=== PATIENT | female | born 1965 | race African-American/Black ===

== ENCOUNTER 2017-10-25 06:29 | Day surgery (SDC) | payer BC ==
--- NOTE | 2017-10-20 18:45 | HP ---
CC: Dr. Kiera Thao; Dr. Jered Toledo; Dr. Baylee Castle, [facility] * ADMISSION HISTORY AND PHYSICAL: DATE OF ADMISSION: 10/25/17 ATTENDING SURGEON: Dr. Demetrio Santiago.* (DICTATED BY JUSTICE BENJAMIN) CHIEF COMPLAINT: Anal fissure. HISTORY OF PRESENT ILLNESS: This is a 52-year-old female with multiple medical problems (see below), who presents with approximately a 2- month history of anorectal pain. She has a past history of internal hemorrhoids and thought initially that that could be the reason for her pain. She describes pain in the anorectal area on a pretty much ongoing basis, though particularly worse at the time of bowel movements. She will occasionally have bright red blood present on the toilet paper, but not on a regular basis. Her bowel movements are at least once daily and she does not describe any history consistent with constipation. She was seen initially by Dr. Santiago on 08/26/17 , at which time, exam in the prone position revealed a hemorrhoidal tag at the 3 o'clock position as well as a sentinel tag at the 11 o'clock position. Digital exam revealed exquisite tenderness at the 11 o'clock position. She was prescribed nitroglycerin ointment and topical lidocaine, neither of which afforded much relief. She returned for further discussion and Dr. Santiago has outlined the options, the indications, risks, benefits, and alternatives. At this point, she would like to proceed as scheduled with Botox injection for anal fissure. 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 She has decreased visual acuity in the right eye. She has esophageal varices (status post EGD on 10/05/[address] Castle with findings of grade 3 esophageal varices and plan for banding of same on 11/02/17 with her warfarin to be held for 5 days ). PAST SURGICAL HISTORY: Previous surgeries include laparoscopic cholecystectomy , laparoscopic converted to open splenectomy, bilateral breast augmentation, prior right breast biopsy and left axillary biopsy both for benign lesions, abdominoplasty, vaginal hysterectomy (subtotal) for benign disease, transhepatic bile duct stenting with subsequent removal of stent, right eye surgery, and left eye surgery. CURRENT MEDICATIONS: 1. Hydrea 500 mg 2 tablets once daily. 2. Warfarin 6 mg on Tuesdays and Fridays and 5.5 mg all other days (I will check with Dr. Santiago whether warfarin can be continued preoperatively for this procedure). 3. Metoprolol 25 mg b.i.d. 4. Hydralazine 25 mg 3 tablets t.i.d. 5. Omeprazole 10 mg q. day. 6. Oxycodone 5 mg up to b.i.d. p.r.n. (uses infrequently). 7. Zolpidem 10 mg q.h.s. 8. Colace 100 mg 2 to 3 times daily. DRUG ALLERGIES: CIPRO (hives), INDERAL (the patient does not recall reaction). She also has nausea secondary to EGGS or EGG DERIVATIVES. FAMILY HISTORY: Father age 59 from PE. No other family history of thromboembolic disease. No family history of anesthesia problems or bleeding disorders. SOCIAL HISTORY: The patient is . Her niece also lives with her. 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 She denies use of tobacco. She drinks on average 1 to 2 drinks per month. She denies other recreational drug use. REVIEW OF SYSTEMS: General: No recent constitutional symptoms or acute illnesses other than described in the HPI and past medical history. Eyes: No recent changes or additions to above. Ears, Nose, Throat: No new problems reported. Teeth in good repair. Cardiovascular: She has a longstanding murmur. No chest pain. She is treated for hypertension. Respiratory: No history of asthma, chronic cough, or shortness of breath. GI: No particular upper GI symptoms. Esophageal varices as noted above. She has had colonic polyps removed in the past. Her last exam greater than 5 years ago (she knows that she is due for a recheck with no interval problems other than noted per the HPI). : No problems reported (breast exam, mammogram, pelvic exam, and Pap smear all done within the past year and reportedly normal). Hematological: As above with sickle cell disease, no additions. Endocrine: No diabetes or thyroid dysfunction. Remainder of review of systems is negative other than as noted. PHYSICAL EXAMINATION GENERAL: Well-nourished, obese, woman, in no acute distress. VITAL SIGNS: Height 64 inches, weight 218 pounds. Blood pressure 136/84, pulse 72, respirations 16. HEENT: Pupils are equal, round, and reactive. EOMs intact. No conjunctival pallor. Oropharynx: Teeth in good repair. No intraoral lesions. NECK: No lymphadenopathy in the cervical or supraclavicular regions. No thyromegaly or masses. LUNGS: Clear to auscultation. No rales or wheezes. HEART: Regular rate and rhythm. She has a soft holosystolic murmur heard throughout the precordium. BREASTS: Not examined. ABDOMEN: Soft with mild tenderness in the epigastrium and right upper quadrant , which she states is consistent with her usual. No palpable masses or organomegaly. GENITALIA: Not done. RECTAL: Not done. BACK: No spinous process or CVA tenderness. EXTREMITIES: No edema at the present time. NEUROLOGIC: Grossly intact. SKIN: Warm and dry. No suspicious rashes or lesions. IMPRESSION: Anal fissure. PLAN: Botox injection for anal fissure. JUSTICE BENJAMIN [id number]/CPS #: [id number] [facility]OSPITALAbad
[~2017-10-25 06:29] MED LIST: Buffered Lidocaine 0.9% SYRIN* 5 ML/SYR SYRINGE INTRADERM ONE; Famotidine TAB* 20 MG PO ONE
[2017-10-25] MEDS ORDERED: Famotidine TAB* 20 MG ONE (06:42)
[2017-10-25] MEDS ORDERED: Lidocaine 1% INJ* 10 MG/ML 30 ML SDV ONE (07:05)
[2017-10-25] MEDS ORDERED: Bupivacaine 0.25% SDV* 30 ML ONE (07:06)
[2017-10-25] MEDS ORDERED: Lidocaine 2% JELLY* 6 ML JELLY TOPICAL ONE (07:06)
[2017-10-25] MEDS ORDERED: Metoprolol Tartrate TAB* 25 MG ONE (07:16)
[2017-10-25] MEDS ORDERED: fentaNYL* 50 MCG/ML 2 ML VIAL (100 MCG VIAL) ONE (07:29)
[2017-10-25] MEDS ORDERED: Midazolam* 1 MG/ML 5 ML VIAL (5 MG) ONE (07:29)
[2017-10-25] MEDS ORDERED: Lidocaine 2% PF * 5 ML VIAL ONE ×2 (07:30→07:31)
[2017-10-25] MEDS ORDERED: Ondansetron INJ* 2 MG/ML VIAL ONE (07:31)
[2017-10-25] MEDS ORDERED: Dexamethasone IV* 4 MG/ML 1 ML (4 MG) ONE (07:31)
[2017-10-25] MEDS ORDERED: Propofol* 10 MG/ML 20 ML BTL IV PUSH ONE (07:31)
[2017-10-25] MEDS ORDERED: Ketorolac INJ* 30 MG/ML 1 ML VIAL ONE (07:31)
[2017-10-25] MEDS ORDERED: Lidocaine 1% MPF wEPI 200,000* 30 ML SDV ONE (07:53)
[2017-10-25] MEDS ORDERED: Onabotulinimtoxina 100 UNITS* VIAL ONE (08:00)
[2017-10-25] MEDS ORDERED: Metoprolol Tartrate TAB* 25 MG PO ONE (08:18)
[2017-10-25] MEDS ORDERED: Naloxone* 0.4 MG/ML 1 ML VIAL IV PRN (08:19)
[2017-10-25] MEDS ORDERED: Acetaminophen TAB* 325 MG PO PRN (08:19)
[2017-10-25] MEDS ORDERED: DiMENhydriNATE IV* 50 MG/ML VIAL IV PUSH PRN (08:19)
[2017-10-25 08:49] VITALS: BP 129/79
--- NOTE | 2017-10-26 12:41 | OP ---
CC: Kiera Thao MD * DATE OF SURGERY: 10/25/17 - SDS DATE OF : 67 SURGEON: Demetrio Santiago MD ANESTHESIA: MAC. ANESTHESIOLOGIST: Dr. Lackey. PRE-OP DIAGNOSIS: Anal fissure. POST-OP DIAGNOSIS: Anal fissure. OPERATIVE PROCEDURE: Botox injection for treatment of anal fissure. ESTIMATED BLOOD LOSS: Minimal. IV FLUIDS: Crystalloid. SPECIMEN: None. DRAINS: None. COMPLICATIONS: None. DESCRIPTION OF PROCEDURE: The patient was brought to the operating room and placed on the table in supine lithotomy. The patient was administered intravenous sedation and then the perineum was prepped and draped. The examination revealed presence of fissure posteriorly and the intersphincteric groove was identified by palpation and then 300 units of Botox was reconstituted in 2 cc of normal saline and 1 cc aliquots were injected in the internal sphincter muscle at areas lateral to the posterior fissure at approximately 4 o'clock and 8 o'clock with the patient supine. Lidocaine jelly was then instilled into the anal canal and the patient tolerated this well, was transferred to recovery in stable condition. [id number]/CPS #: [id number] MTDD
== END 2017-10-25 09:24 | disposition home or self-care (01) ==
LOC: OR 06:29
PROVIDERS: ATTEND Surgery
DX: K60.2 Anal fissure, unspecified (principal); Z79.01 Long term (current) use of anticoagulants; Z79.899 Other long term (current) drug therapy; Z88.1 Allergy status to other antibiotic agents
CPT/HCPCS: A9270-GY; J0585; J1100; J1885; J2001; J2250; J2405; J2704; J3010

== ENCOUNTER 2017-11-15 07:22 | Inpatient (IN) | payer BC ==
[2017-11-15] MEDS ORDERED: NS 0.9% 1000 ML* 1,000 ML IV ONE (07:48)
[2017-11-15 08:02] LABS: Urine Appearance Clear; Urine Blood Negative (Negative); Urine Color Yellow; Urine Ketones Negative (Negative); Urine Protein Negative (Negative); Urine Specific Gravity 1.009 (1.010-1.030); Urine Urobilinogen Negative (Negative)
[2017-11-15 08:12] LABS: Hematocrit 26 % (35-47); Hemoglobin 8.6 g/dl (12.0-16.0); Mean Corpuscular HGB Conc 33 g/dl (31-36); Mean Corpuscular Hemoglobin 30 pg (27-31); Mean Corpuscular Volume 92 fL (80-97); Mean Platelet Volume 9.8 um3 (7.4-10.4); Platelet Count 234 10^3/ul (150-450); Red Blood Count 2.83 10^6/ul (4.0-5.4); Red Cell Distribution Width 20 % (10.5-15); White Blood Count 7.1 10^3/ul (3.5-10.8)
[2017-11-15 08:15] LABS: INR 1.4 (0.77-1.02)
[2017-11-15 08:23] LABS: EGFR Non-African American 86.8 (>60)
[2017-11-15 08:56] LABS: Monocytes % 9 % (0-7)
[2017-11-15] MEDS ORDERED: Ondansetron INJ* 2 MG/ML VIAL IV ONE (09:16)
[2017-11-15] MEDS ORDERED: Morphine VIAL* 4 MG/ML VIAL (1 ml vial) IV ONE ×3 (09:16→14:25)
[2017-11-15] MEDS ORDERED: Iohexol 300* (CONTRAST) 10 ML SDV IV ONE (10:19)
--- NOTE | 2017-11-15 10:58 | RAD ---
INDICATION: Abdominal pain. Appendicitis . Recent banding of gastric varices COMPARISON: None TECHNIQUE: Axial source images were obtained from the hemidiaphragms to the symphysis pubis following administration of oral and intravenous contrast. 131 mL Omnipaque 300 was utilized. Coronal and sagittal reconstructed images were acquired. Lung bases: There is a small left-sided pleural effusion with atelectatic change in the left lung base. Liver: The liver is heterogeneous with geographic areas of decreased attenuation. The findings are likely related to focal sparing from fatty infiltration. There is intrahepatic gas which is believed to be biliary in origin Suggest follow-up.. Gallbladder: Cholecystectomy. Spleen: Splenectomy. Pancreas: No focal pancreatic mass or significant ductal dilatation. Adrenal glands: There is no evidence of adrenal mass. Kidneys: The kidneys are normal in size and position. There are prompt nephrograms and there is prompt excretion bilaterally. There are no renal parenchymal masses. There is no evidence of nephrolithiasis. Adenopathy: There is no evidence of adenopathy by size criteria. Fluid collections: There is diffuse mesenteric edema. Much of the edema is peripancreatic in origin. There is trace free fluid in the dependent portion of the pelvis Vessels:There are no significant atherosclerotic changes involving the aorta. There is no focal aneurysm. The iliac vessels are normal in caliber. The IVC appears normal. The portal vein is thrombosed. GI tract: There are no acute CT bowel findings. There is no obstruction. The stomach and small bowel appear normal. The lower GI tract is normal. The cecum, ileocecal valve, and terminal ileum appear normal. The appendix is not visualized. There is no mass or localized peripancreatic inflammatory change. Pelvic organs: Hysterectomy. No adnexal mass Bladder: There are no bladder masses. Abdominal and pelvic soft tissues: The extraperitoneal abdominal and pelvic soft tissues appear normal.. Osseous structures: There are no acute osseous findings. Other: None IMPRESSION: 1. Small left-sided pleural effusion and left basilar atelectasis. 2. Heterogeneous liver with geographic areas of decreased attenuation likely related to focal sparing from fatty infiltration. Suggest follow-up. 3. Intrahepatic gas which is believed to be secondary to pneumobilia. The patient status post cholecystectomy. Has patient undergone sphincterotomy? 4. Age-indeterminate portal venous thrombosis. 5. Splenectomy. 6. Nonvisualization of the appendix. 7. Hysterectomy. 8. Suggest correlation with prior imaging and complete medical history.
--- NOTE | 2017-11-15 12:03 | ED ---
Tamir Saldivar Tiffany, scribed for Neil Walden on 11/15/17 at 0756 . Abdominal Pain/Female - HPI Summary HPI Summary: 52 y/o F presents to [facility] complains of abdominal pain since four days ago. Describes the pain as pressure. Rates the pain 7/10 in severity. Symptoms aggravated by food. Symptoms alleviated by nothing. Reports decreased appetite. Denies vomiting, diarrhea, bloody stools, constipation, black stools. Has treated pain with oxycodone [employer] without relief. Hx Sickle cell. Surg hx gallbladder. Had endoscopy done with banding on . Pt called office, talked to Dr. Melendez, who said for her to come to the ED. - History of Current Complaint Chief Complaint: EDAbdPain Stated Complaint: ABD PAIN Time Seen by Provider: 11/15/17 07:31 Hx Obtained From: Patient Onset/Duration: Lasting Days - four days ago, Still Present Severity Currently: Moderate Pain Intensity: 7 Pain Scale Used: 0-10 Numeric Character: Other: - Pressure Aggravating Factor(s): Food Alleviating Factor(s): Nothing Associated Signs and Symptoms: Positive: Negative - vomiting, diarrhea, bloody stools, constipation, black stools, Decreased Appetite Allergies/Adverse Reactions: Allergies Allergy/AdvReac Type Severity Reaction Status Date / Time ciprofloxacin [From Cipro] Allergy Intermediate Hives Verified 11/15/17 07:28 egg Allergy hives and Verified 11/15/17 07:28 vomiting chicken derived AdvReac Intermediate Nausea Verified 11/15/17 07:28 Home Medications: Home Medications Warfarin TAB(*) [Coumadin TAB(*)] 6 mg PO TUFR 11/15/17 [History Confirmed 11/15] PMH/Surg Hx/FS Hx/Imm Hx Previously Healthy: No Endocrine/Hematology History: Reports: Hx Sickle Cell Disease - sickle SC disease, Hx Anemia Denies: Hx Diabetes Cardiovascular History: Reports: Hx Cardiomegaly, Hx Hypertension Denies: Hx Pacemaker/ICD Respiratory History: Reports: Hx Sleep Apnea GI History: Reports: Hx Gastroesophageal Reflux Disease, Hx Irritable Bowel - r/ t gallbladder removed, Other GI Disorders - Hx of stones in bile duct History: Denies: Hx Renal Disease Musculoskeletal History: Reports: Hx Arthritis - degenerative arthritis left knee Sensory History: Reports: Hx Contacts or Glasses - glasses Denies: Hx Hearing Aid Opthamlomology History: Reports: Hx Contacts or Glasses - glasses Psychiatric History: Denies: Hx Panic Disorder - Cancer History Hx Chemotherapy: No - Surgical History Surgery Procedure, Year, and Place: GALLBLADDER-RIGHT BREAST LUMPECTOMY. SPLENECTOMY. BREAST REDUCTION. TUMMY TUCK. EYE SURGERY FOR VISION. HYSTERECTOMY Hx Anesthesia Reactions: No Infectious Disease History: Yes Infectious Disease History: Reports: Hx Hepatitis - non specified hep Denies: Traveled Outside the [place] in Last 30 Days - Family History Known Family History: Positive: Hypertension - Mother, Other - Father from pulmonary embolism, mother has enlarged heart - Social History Alcohol Use: Occasionally Hx Substance Use: No Substance Use Type: Reports: None Hx Tobacco Use: No Smoking Status (MU): Never Smoked Tobacco Review of Systems Negative: Fever Gastrointestinal: Negative - bloody stools, constipation, black stools Positive: Abdominal Pain, Other - Decreased appetite. Negative: Vomiting, Diarrhea All Other Systems Reviewed And Are Negative: Yes Physical Exam - Summary Physical Exam Summary: Appearance: Well appearing, no pain distress Skin: warm, dry, reflects adequate perfusion Head/face: normal Eyes: EOMI, DANIEL ENT: normal Neck: supple, non-tender Respiratory: CTA, breath sounds present Cardiovascular: RRR, pulses symmetrical Abdomen: tenderness in the epigastric area, RUQ, RLQ Bowel: present Musculoskeletal: normal, strength/ROM intact Neuro: normal, sensory motor intact, A&Ox3 Triage Information Reviewed: Yes Vital Signs On Initial Exam: Initial Vitals Temp Pulse Resp BP Pulse Ox 98.4 F 88 16 147/89 99 11/15/17 07:24 11/15/17 07:24 11/15/17 07:24 11/15/17 07:24 11/15/17 07:24 Vital Signs Reviewed: Yes Diagnostics - Vital Signs Vital Signs Temp Pulse Resp BP Pulse Ox 11/15/17 07:24 98.4 F 88 16 147/89 99 - Laboratory Lab Results: Lab Results 11/15/17 11/15/17 11/15/17 Range/Units 07:54 07:58 07:58 WBC 7.1 (3.5-10.8) 10^3/ul RBC 2.83 L (4.0-5.4) 10^6/ul Hgb 8.6 L (12.0-16.0) g/dl Hct 26 L (35-47) % MCV 92 (80-97) fL MCH 30 (27-31) pg MCHC 33 (31-36) g/dl RDW 20 H (10.5-15) % Plt Count 234 (150-450) 10^3/ul MPV 9.8 (7.4-10.4) um3 Neut % (Auto) Not Reportable Lymph % (Auto) Not Reportable [place] % (Auto) Not Reportable Eos % (Auto) Not Reportable Baso % (Auto) Not Reportable Absolute Neuts (auto) Not Reportable Absolute Lymphs (auto) Not Reportable Absolute Monos (auto) Not Reportable Absolute Eos (auto) Not Reportable Absolute Basos (auto) Not Reportable Absolute Nucleated RBC Not Reportable Neutrophils % 84 H (38-83) % Lymphocytes % 7 L (25-47) % Monocytes % 9 H (0-7) % Eosinophils % 0 (0-6) % Basophils % 0 (0-2) % Nucleated RBC % Not Reportable Abs Neuts (Manual) 6.0 (1.5-7.7) 10^3/ul Abs Lymphs (Manual) 0.5 L (1.0-4.8) 10^3/ul Abs Monocytes (Manual) 0.6 (0-0.8) 10^3/ul Absolute Eos (Manual) 0 (0-0.6) 10^3/ul Abs Basophils (Manual) 0 (0-0.2) 10^3/ul Normal RBC Morphology Not Reportable Polychromasia 1+ Target Cells 3+ INR (Anticoag Therapy) (0.77-1.02) APTT (26.0-36.3) seconds Sodium 136 L (139-145) mmol/L Potassium 3.4 L (3.5-5.0) mmol/L Chloride 104 (101-111) mmol/L Carbon Dioxide 27 (22-32) mmol/L Anion Gap 5 (2-11) mmol/L BUN 6 (6-24) mg/dL Creatinine 0.71 (0.51-0.95) mg/dL Est GFR ( Amer) 111.6 (>60) Est GFR (Non-Af Amer) 86.8 (>60) BUN/Creatinine Ratio 8.5 (8-20) Glucose 103 H (70-100) mg/dL Lactic Acid (0.5-2.0) mmol/L Calcium 8.6 (8.6-10.3) mg/dL Total Bilirubin 0.90 (0.2-1.0) mg/dL AST 14 (13-39) U/L ALT 6 L (7-52) U/L Alkaline Phosphatase 105 H (34-104) U/L Troponin I 0.00 (<0.04) ng/mL Total Protein 7.5 (6.4-8.9) g/dL Albumin 3.2 (3.2-5.2) g/dL Globulin 4.3 H (2-4) g/dL Albumin/Globulin Ratio 0.7 L (1-3) Lipase 12 (11.0-82.0) U/L Beta HCG, Quant 1.28 mIU/mL Urine Color Yellow Urine Appearance Clear Urine pH 7.0 (5-9) Ur Specific [place] 1.009 L (1.010-1.030) Urine Protein Negative (Negative) Urine Ketones Negative (Negative) Urine Blood Negative (Negative) Urine Nitrate Negative (Negative) Urine Bilirubin Negative (Negative) Urine Urobilinogen Negative (Negative) Ur Leukocyte Esterase Negative (Negative) Urine Glucose Negative (Negative) 11/15/17 11/15/17 Range/Units 07:58 07:58 WBC (3.5-10.8) 10^3/ul RBC (4.0-5.4) 10^6/ul Hgb (12.0-16.0) g/dl Hct (35-47) % MCV (80-97) fL MCH (27-31) pg MCHC (31-36) g/dl RDW (10.5-15) % Plt Count (150-450) 10^3/ul MPV (7.4-10.4) um3 Neut % (Auto) Lymph % (Auto) [place] % (Auto) Eos % (Auto) Baso % (Auto) Absolute Neuts (auto) Absolute Lymphs (auto) Absolute Monos (auto) Absolute Eos (auto) Absolute Basos (auto) Absolute Nucleated RBC Neutrophils % (38-83) % Lymphocytes % (25-47) % Monocytes % (0-7) % Eosinophils % (0-6) % Basophils % (0-2) % Nucleated RBC % Abs Neuts (Manual) (1.5-7.7) 10^3/ul Abs Lymphs (Manual) (1.0-4.8) 10^3/ul Abs Monocytes (Manual) (0-0.8) 10^3/ul Absolute Eos (Manual) (0-0.6) 10^3/ul Abs Basophils (Manual) (0-0.2) 10^3/ul Normal RBC Morphology Polychromasia Target Cells INR (Anticoag Therapy) 1.40 H (0.77-1.02) APTT 34.5 (26.0-36.3) seconds Sodium (139-145) mmol/L Potassium (3.5-5.0) mmol/L Chloride (101-111) mmol/L Carbon Dioxide (22-32) mmol/L Anion Gap (2-11) mmol/L BUN (6-24) mg/dL Creatinine (0.51-0.95) mg/dL Est GFR ( Amer) (>60) Est GFR (Non-Af Amer) (>60) BUN/Creatinine Ratio (8-20) Glucose (70-100) mg/dL Lactic Acid 0.8 (0.5-2.0) mmol/L Calcium (8.6-10.3) mg/dL Total Bilirubin (0.2-1.0) mg/dL AST (13-39) U/L ALT (7-52) U/L Alkaline Phosphatase (34-104) U/L Troponin I (<0.04) ng/mL Total Protein (6.4-8.9) g/dL Albumin (3.2-5.2) g/dL Globulin (2-4) g/dL Albumin/Globulin Ratio (1-3) Lipase (11.0-82.0) U/L Beta HCG, Quant mIU/mL Urine Color Urine Appearance Urine pH (5-9) Ur Specific [place] (1.010-1.030) Urine Protein (Negative) Urine Ketones (Negative) Urine Blood (Negative) Urine Nitrate (Negative) Urine Bilirubin (Negative) Urine Urobilinogen (Negative) Ur Leukocyte Esterase (Negative) Urine Glucose (Negative) Result Diagrams: 11/15/17 07:58 11/15/17 07:58 Lab Statement: Any lab studies that have been ordered have been reviewed, and results considered in the medical decision making process. - CT Abd/Pel CT Interpretation Completed By: Radiologist - 1. Small left-sided pleural effusion and left basilar atelectasis. 2. Heterogeneous liver with geographic areas of decreased attenuation likely related to focal sparing from fatty infiltration. Suggest follow-up. 3. Intrahepatic gas which is believed to be secondary to pneumobilia. The patient status post cholecystectomy. Has patient undergone sphincterotomy? 4. Age-indeterminate portal venous thrombosis. 5. Splenectomy. 6. Nonvisualization of the appendix. 7. Hysterectomy. 8. Suggest correlation with prior imaging and complete medical history. ED physician has reviewed this report. - EKG 07:59 Cardiac Rate: NL - 83 BPM EKG Rhythm: Sinus Rhythm EKG Interpretation: No acute changes Abdominal Pain Fem Course/Dx - Course Course Of Treatment: 52 y/o F presents to [facility] complains of abdominal pain since four days ago. Bloodwork, UA, imaging obtained. Consulted patient care with Dr. Toledo, oncology, who agress to admit patient. - Diagnoses Differential Diagnosis: Positive: Appendicitis, Diverticulitis, Pancreatitis, Renal Colic, Urinary Tract Infection Provider Diagnoses: Abdominal pain, Sickle cell disease, Anemia, Portal vein thrombosis - Provider Notifications Discussed Care Of Patient With: Nawaf Melendez Time Discussed With Above Provider: 08:07 Instructed by Provider To: Other - Dr. Melendez (GI) agrees to come in and see patient. Dr. Toledo, oncology, agrees to admit patient at 11:52. Discharge - Sign-Out/Discharge Documenting (check all that apply): Discharge/Admit/Transfer - Discharge Plan Condition: Fair Disposition: ADMITTED TO [facility] Referrals: Kiera Thao MD [Primary Care Provider] - Additional Instructions: Follow up with your primary care provider in 3 days. Return to the Emergency Department for any new or worsening symptoms. - Billing Disposition and Condition Condition: FAIR Disposition: [facility] The documentation as recorded by the Tamir forbes Tiffany accurately reflects the service I personally performed and the decisions made by Iram javier Emmanuel.
[2017-11-15 13:52] LABS: Immature Retic Fraction 0.66; RBC Retic Count 2.84 10^6/ul (4.6-6.2)
[2017-11-15 14:58] LABS: Hematocrit for Retic CNT 26 % (35-47)
[2017-11-15] MEDS: NS 0.9% 1000 ML* 1,000 ML IV SCH ×2 (16:00→21:23)
[2017-11-15] MEDS ORDERED: Ondansetron ODT TAB* 4 MG PO PRN (17:34)
[2017-11-15] MEDS ORDERED: Ondansetron INJ* 2 MG/ML VIAL IV PRN (17:34)
[2017-11-15] MEDS ORDERED: KCL 20 MEQ/100 ML IVPREMIX* 20 MEQ/100 ML BAG IV ONE (17:36)
[2017-11-15] MEDS ORDERED: Warfarin TAB(*) 6 MG PO SCH (18:00)
[2017-11-15] MEDS: Morphine VIAL* 4 MG/ML VIAL (1 ml vial) IV PRN ×2 (18:09→21:37)
[2017-11-15] MEDS: hydrALAZINE TAB* 25 MG PO SCH (21:22)
[2017-11-15] MEDS: Metoprolol Tartrate TAB* 25 MG PO SCH (21:23)
[2017-11-15] MEDS: Zolpidem TAB* 10 MG PO PRN (21:36)
[2017-11-15] MEDS: HydroxyUREA CAP* 500 MG CAP PO SCH (21:36)
--- NOTE | 2017-11-16 00:35 | CONS ---
GASTROENTEROLOGY CONSULT: DATE: 11/15/17 CONSULTING PHYSICIANS: Neil Walden, ER Kiera Thao, [facility] Jered Toledo REASON FOR CONSULT: Upper abdominal pain increasing in a woman with portal hypertension secondary to portal venous clotting and recent variceal banding on 11/09/17. 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 She had an upper endoscopy October 05 investigating 4-5 months of abdominal pain that had not responded to trials of PPIs. At that time varices were seen, though she was on warfarin (sickle cell prophylaxis) and plan was made to hold that and at a later date come back for banding. No clear-cut cause for the abdominal pain that led to the September 2017 endoscopy was evident. She had very mild antral gastritis and mild duodenitis. She came in for the banding 11/09/17 with 4 bands applied to fairly impressive varices in the distal esophagus. She went home, has had a feeling of pressure in her lower chest. She vomited once. The next day, she was able to take in water and had some lemonade, but she was not eating solids She felt a little better on 11/11/17 and 11/12/17, but then felt worse again by 11/14/17 and she was only taking in crackers. She said there was pain and feverishness and there was 1 more episode of mild emesis yesterday. She had a feeling of chills. Her bowels have been reduced she says consistent with her reduced intake. She had a small formed movement last night that was brown. She did report having some tarry stools a couple of weeks ago before the banding. She called the answering service this morning stating she was not able to eat and was in severe pain and was recommended she come to the ER. PAST MEDICAL HISTORY: 1. 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 She has never had any transfusions or exchange transfusions. She has been on Hydrea started by a medical manager at the [facility] a few yrs ago 2. Portal hypertension - secondary to obliteration of the portal vein and branches. She had a liver biopsy in [place] in 2009 showing fatty change. Later her said she'd had at least 5 variceal bandings 3. Splenectomy - in 1999. 4. Cholecystectomy in 1997. 5. Hysterectomy - ovaries left in place in 2001. 6. Breast reduction surgery in 2004. 7. Breast lumpectomies - in the remote past. 8. Abdominoplasty. 9. Sleep apnea - using a CPAP for several years. 10. History of common bile duct stones - ERCP in 2002 with endoscopic sphincterotomy and removal of common bile duct stones. 11. Pancreatitis episodes - over 5 yrs ago MEDICATIONS AT HOME: 1. Hydrea 1 g b.i.d. 2. Metoprolol 25 b.i.d. 3. Hydralazine 75 t.i.d. 4. Warfarin 6 mg 2 days a week, 5.5 five days a week. 5. Omeprazole 20 mg on an empiric trial. 6. She has a supply of oxycodone at home for pain. 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 She is . ROS - no history of seizures, CVA, throid disease, falls, hepatitis, renal stones, neuropathy, skin disease PHYSICAL EXAM: She is a healthy-appearing black female, in overt distress at this time in the ER on a gurney. She had 4 mg of morphine about 2 hours ago. HEENT exam shows no icterus. She has no adenopathy. Her lungs are clear. Heart sounds are normal. Breast and Pelvic Exams: Deferred. The abdomen is mildly obese, soft and with some doughy resistance in the upper abdomen without localization. There is no involuntary guarding. Rectal: Deferred. Extremities show no edema. DIAGNOSTIC STUDIES/LAB DATA: CT review - some irregularity of the hepatic texture. Gallbladder is missing. Portal vein is not seen, though there are multiple small little collaterals with dye. Axial and sagittal views of the distal esophagus do not show impressive collaterals. There is no ascites. The pancreas has a somewhat ill defined margin. Labs - CBC: Hemoglobin 8.6, hematocrit 26, MCV 92, white count 7.1, platelets 234. INR 1.40. Sodium 136, potassium 3.4, creatinine 0.71, BUN 6. LFTs normal with alkaline phosphatase borderline at 105. LDH 233. Albumin 3.2. Urinalysis shows specific gravity 1.009 and all other parameters negative. From April 2017, she had a negative hepatitis B surface antigen and hepatitis B core antibody. IMPRESSION AND PLAN: This 52-year-old woman with portal hypertension based not on hepatic parenchymal disease, but portal venous occlusions, has upper abdominal pain increasing shortly following an upper endoscopy with banding. The endoscopy was designed to find cause for abdominal pain. It did not do so, though bands were applied to varices for the third time (addendum - her says 5th or 6th). At this time, there is nothing specific in her history, exam or imaging to point to a specific complication from the endoscopy. If nothing else is found and it seems most likely that the acute pain could be from the bands it may be that in some area one secured a portion of the muscular layer. There is no evidence for pancreatitis, CBD stone or small bowel obstruction or diverticulitis. It does not seem likely that she has a sickle crisis at the moment, though we will defer to Dr. Toledo's judgement. Admission, hydration and pain control seem warranted. She does not appear to be significantly dehydrated at the moment. [id number]/[facility] #: [id number] [facility] SHOREAbad
[2017-11-16] MEDS: Morphine VIAL* 4 MG/ML VIAL (1 ml vial) IV PRN ×6 (02:21→22:31)
[2017-11-16] MEDS: NS 0.9% 1000 ML* 1,000 ML IV SCH ×4 (03:06→21:04)
[2017-11-16 05:51] LABS: Hematocrit 23 % (35-47); Hemoglobin 7.7 g/dl (12.0-16.0); Mean Corpuscular HGB Conc 33 g/dl (31-36); Mean Corpuscular Hemoglobin 31 pg (27-31); Mean Corpuscular Volume 93 fL (80-97); Mean Platelet Volume 9.9 um3 (7.4-10.4); Platelet Count 244 10^3/ul (150-450); Red Blood Count 2.49 10^6/ul (4.0-5.4); Red Cell Distribution Width 20 % (10.5-15); White Blood Count 7.1 10^3/ul (3.5-10.8)
[2017-11-16 05:52] LABS: INR 1.68 (0.77-1.02)
[2017-11-16 06:03] LABS: EGFR Non-African American 99.6 (>60)
[2017-11-16 06:30] LABS: Monocytes % 13 % (0-7)
[2017-11-16] MEDS: Omeprazole CAP* 20 MG PO SCH (07:56)
[2017-11-16] MEDS: HydroxyUREA CAP* 500 MG CAP PO SCH ×2 (09:25→21:09)
[2017-11-16] MEDS: Metoprolol Tartrate TAB* 25 MG PO SCH ×2 (09:25→21:09)
[2017-11-16] MEDS: hydrALAZINE TAB* 25 MG PO SCH ×3 (09:25→21:09)
[2017-11-16] MEDS ORDERED: Warfarin TAB(*) 5 MG PO SCH (17:00)
[2017-11-16] MEDS ORDERED: Warfarin TAB(*) 6 MG PO ONE (17:00)
[2017-11-16] MEDS ORDERED: Warfarin TAB(*) 1 MG PO SCH (17:00)
[2017-11-16] MEDS: Zolpidem TAB* 10 MG PO PRN (22:31)
[2017-11-17] MEDS: Morphine VIAL* 4 MG/ML VIAL (1 ml vial) IV PRN ×5 (03:40→23:17)
[2017-11-17] MEDS: NS 0.9% 1000 ML* 1,000 ML IV SCH (03:40)
[2017-11-17 05:35] LABS: Hematocrit 23 % (35-47); Hemoglobin 7.8 g/dl (12.0-16.0); Mean Corpuscular HGB Conc 33 g/dl (31-36); Mean Corpuscular Hemoglobin 31 pg (27-31); Mean Corpuscular Volume 92 fL (80-97); Mean Platelet Volume 9.6 um3 (7.4-10.4); Platelet Count 277 10^3/ul (150-450); Red Blood Count 2.54 10^6/ul (4.0-5.4); Red Cell Distribution Width 20 % (10.5-15); White Blood Count 7.1 10^3/ul (3.5-10.8)
[2017-11-17 05:37] LABS: INR 2.31 (0.77-1.02)
[2017-11-17 05:48] LABS: EGFR Non-African American 116.5 (>60)
[2017-11-17 06:03] LABS: Monocytes % 6 % (0-7)
[2017-11-17] MEDS: Omeprazole CAP* 20 MG PO SCH (09:23)
[2017-11-17] MEDS: Metoprolol Tartrate TAB* 25 MG PO SCH ×2 (09:23→20:41)
[2017-11-17] MEDS: hydrALAZINE TAB* 25 MG PO SCH ×3 (09:23→20:39)
[2017-11-17] MEDS: HydroxyUREA CAP* 500 MG CAP PO SCH ×2 (09:23→20:42)
--- NOTE | 2017-11-17 09:52 | PN ---
Progress Note - Progress Note Date of Service: 11/17/17 SOAP: Subjective: still does not feel well. feels like if she goes home she will come right back. midepigastric pain radiating up her throat like bile and around the right side to her back. this is similar in a lot of ways to the pain that prompted her upper endoscopy in September to try to find cause of pain. has not vomited but feels like she wants to. definitely NOT similar to her sickle pain crises. Objective: Vital Signs Temp Pulse Resp BP Pulse Ox 98.7 F 92 16 137/77 100 11/17/17 07:16 11/17/17 07:16 11/17/17 07:16 11/17/17 07:16 11/17/17 07:16 sitting up in nad perr eomi op moist CTA bl s1 s2 II/ LANA soft, mild ttp throughout, +bs no le edema A+O x 3, nonfocal neurological exam Laboratory Results - last 24 hr 11/17/17 11/17/17 11/17/17 05:07 05:07 05:07 WBC 7.1 RBC 2.54 L Hgb 7.8 L Hct 23 L MCV 92 MCH 31 MCHC 33 RDW 20 H Plt Count 277 MPV 9.6 Neut % (Auto) Not Reportable Lymph % (Auto) Not Reportable [place] % (Auto) Not Reportable Eos % (Auto) Not Reportable Baso % (Auto) Not Reportable Absolute Neuts (auto) Not Reportable Absolute Lymphs (auto) Not Reportable Absolute Monos (auto) Not Reportable Absolute Eos (auto) Not Reportable Absolute Basos (auto) Not Reportable Absolute Nucleated RBC Not Reportable Neutrophils % 81 Lymphocytes % 13 L Monocytes % 6 Eosinophils % 0 Basophils % 0 Nucleated RBC % Not Reportable Abs Neuts (Manual) 5.8 Abs Lymphs (Manual) 0.9 L Abs Monocytes (Manual) 0.4 Absolute Eos (Manual) 0 Abs Basophils (Manual) 0 Nucleated RBCs/100 WBC 4 H Normal RBC Morphology Not Reportable Anisocytosis 2+ Target Cells 3+ INR (Anticoag Therapy) 2.31 H Sodium 135 L Potassium 3.3 L Chloride 105 Carbon Dioxide 25 Anion Gap 5 BUN 3 L Creatinine 0.55 Est GFR ( Amer) 149.9 Est GFR (Non-Af Amer) 116.5 BUN/Creatinine Ratio 5.5 L Glucose 102 H Calcium 7.9 L Hydralazine HCl (Apresoline Tab*) 75 mg PO TID [facility] Last Admin: 11/17/17 09:23 Dose: 75 mg Hydroxyurea (Hydrea Cap*) 1,000 mg PO BID [facility] Last Admin: 11/17/17 09:23 Dose: 1,000 mg Metoprolol Tartrate (Lopressor Tab*) 25 mg PO BID [facility] Last Admin: 11/17/17 09:23 Dose: 25 mg Morphine Sulfate (Morphine Vial*) 4 mg IV Q2H PRN PRN Reason: PAIN Last Admin: 11/17/17 03:40 Dose: 4 mg Omeprazole (Prilosec Cap*) 20 mg PO QAM [facility] Last Admin: 11/17/17 09:23 Dose: 20 mg Ondansetron HCl (Zofran Inj*) 4 mg IV Q4H PRN PRN Reason: NAUSEA Ondansetron HCl (Zofran Odt Tab*) 4 mg PO Q6H PRN PRN Reason: NAUSEA Pharmacy Profile Note (Coumadin Per Pharmacy*) 1 note FOLLOW UP .PER PHARMACY PROTOC [facility] PRN Reason: Protocol Potassium Chloride (Klor Con Er Tab*) 20 meq PO DAILY [facility] Warfarin Sodium (Coumadin Tab(*)) 6 mg PO DAILY@1700 [facility] PRN Reason: Protocol Zolpidem Tartrate (Ambien Tab*) 10 mg PO BEDTIME PRN PRN Reason: INSOMNIA Last Admin: 11/16/17 22:31 Dose: 10 mg Assessment: 52 yo F w PMH of Hb SC disease, chronic portal vein thrombosis on coumadin, presenting with abdominal pain of unclear etiology, with acute exacerbation after variceal banding by GI. She still has abdominal pain that I do NOT feel is related to her sickle cell disease (no increase in reticulocytes, normal bilirubin, not classic pain). I would like to reach back out to GI for guidance on further diagnostic evaluation. Plan: Abdominal pain: unclear etiology cont morphine IV will d/w GI adding reglan Hb SC: no evidence of exacerbation cont hydrea PVT: cont coumadin HTN: cont bblocker and hydralazine dvt prophylaxis on coumadin
[2017-11-17] MEDS: Potassium Chlor TAB* 20 MEQ TAB.ER PO SCH (12:27)
[2017-11-17] MEDS: Metoclopramide TAB* 10 MG PO SCH ×2 (12:27→20:41)
[2017-11-17 15:03] LABS: Urine Appearance Clear; Urine Blood Negative (Negative); Urine Color Yellow; Urine Ketones 1+ (Negative); Urine Protein Negative (Negative); Urine Specific Gravity 1.009 (1.010-1.030); Urine Urobilinogen Negative (Negative)
[2017-11-17] MEDS: Warfarin TAB(*) 6 MG PO SCH (17:07)
[2017-11-17] MEDS: Zolpidem TAB* 10 MG PO PRN (22:02)
[2017-11-18] MEDS: Metoclopramide TAB* 10 MG PO SCH ×3 (05:37→20:34)
[2017-11-18 05:49] LABS: Hematocrit 23 % (35-47); Hemoglobin 7.7 g/dl (12.0-16.0); Mean Corpuscular HGB Conc 34 g/dl (31-36); Mean Corpuscular Hemoglobin 31 pg (27-31); Mean Corpuscular Volume 92 fL (80-97); Mean Platelet Volume 9.4 um3 (7.4-10.4); Platelet Count 347 10^3/ul (150-450); Red Cell Distribution Width 20 % (10.5-15); White Blood Count 9.7 10^3/ul (3.5-10.8)
[2017-11-18 05:55] LABS: INR 2.76 (0.77-1.02)
[2017-11-18 05:56] LABS: EGFR Non-African American 101.5 (>60)
[2017-11-18 07:47] LABS: Monocytes % 7 % (0-7)
--- NOTE | 2017-11-18 08:47 | PN ---
Progress Note - Progress Note Date of Service: 11/18/17 SOAP: Subjective: lying in bed in the position because of abdominal pain. makes her feel better. last pain meds last night, trying to taper herself off of them. pending an US this am. Objective: Vital Signs Temp Pulse Resp BP Pulse Ox 98.9 F 96 17 150/83 99 11/18/17 08:08 11/18/17 08:08 11/18/17 08:08 11/18/17 08:08 11/18/17 08:08 uncomfortable appearing curled up and deferring abdominal exam today A+O x 3 Laboratory Results - last 24 hr 11/15/17 11/16/17 11/17/17 07:58 05:21 05:07 WBC RBC Hgb Hct MCV MCH MCHC RDW Plt Count MPV Neut % (Auto) Lymph % (Auto) Thomas % (Auto) Eos % (Auto) Baso % (Auto) Absolute Neuts (auto) Absolute Lymphs (auto) Absolute Monos (auto) Absolute Eos (auto) Absolute Basos (auto) Absolute Nucleated RBC Neutrophils % Lymphocytes % Reactive Lymphs % Monocytes % Eosinophils % Basophils % Nucleated RBC % Abs Neuts (Manual) Abs Lymphs (Manual) Abs Monocytes (Manual) Absolute Eos (Manual) Abs Basophils (Manual) Normal RBC Morphology Target Cells Hem Pathologist Commnt INR (Anticoag Therapy) D-Dimer, Quantitative Sodium 136 L 138 L Potassium 3.4 L 3.6 Chloride 104 107 Carbon Dioxide 27 25 Anion Gap 5 6 BUN 6 4 L Creatinine 0.71 0.63 Est GFR ( Amer) 111.6 128.1 Est GFR (Non-Af Amer) 86.8 99.6 BUN/Creatinine Ratio 8.5 6.3 L Glucose 103 H 98 Calcium 8.6 7.9 L Total Bilirubin 0.90 0.60 AST 14 13 ALT 6 L 6 L Alkaline Phosphatase 105 H 94 Lactate Dehydrogenase 233 Troponin I 0.00 C-Reactive Protein 103.26 H 119.17 H Total Protein 7.5 6.7 Albumin 3.2 2.8 L Globulin 4.3 H 3.9 Albumin/Globulin Ratio 0.7 L 0.7 L Lipase 12 Beta HCG, Quant 1.28 Urine Color Urine Appearance Urine pH Ur Specific [place] Urine Protein Urine Ketones Urine Blood Urine Nitrate Urine Bilirubin Urine Urobilinogen Ur Leukocyte Esterase Urine Glucose 11/17/17 11/18/17 11/18/17 14:14 05:19 05:19 WBC 9.7 RBC 2.50 L Hgb 7.7 L Hct 23 L MCV 92 MCH 31 MCHC 34 RDW 20 H Plt Count 347 MPV 9.4 Neut % (Auto) Not Reportable Lymph % (Auto) Not Reportable Thomas % (Auto) Not Reportable Eos % (Auto) Not Reportable Baso % (Auto) Not Reportable Absolute Neuts (auto) Not Reportable Absolute Lymphs (auto) Not Reportable Absolute Monos (auto) Not Reportable Absolute Eos (auto) Not Reportable Absolute Basos (auto) Not Reportable Absolute Nucleated RBC Not Reportable Neutrophils % 78 Lymphocytes % 13 L Reactive Lymphs % 1 Monocytes % 7 Eosinophils % 0 Basophils % 1 Nucleated RBC % Not Reportable Abs Neuts (Manual) 7.6 Abs Lymphs (Manual) 1.3 Abs Monocytes (Manual) 0.7 Absolute Eos (Manual) 0 Abs Basophils (Manual) 0.1 Normal RBC Morphology Not Reportable Target Cells 1+ Hem Pathologist Commnt INR (Anticoag Therapy) 2.76 H D-Dimer, Quantitative > 1050 H Sodium Potassium Chloride Carbon Dioxide Anion Gap BUN Creatinine Est GFR ( Amer) Est GFR (Non-Af Amer) BUN/Creatinine Ratio Glucose Calcium Total Bilirubin AST ALT Alkaline Phosphatase Lactate Dehydrogenase Troponin I C-Reactive Protein Total Protein Albumin Globulin Albumin/Globulin Ratio Lipase Beta HCG, Quant Urine Color Yellow Urine Appearance Clear Urine pH 5.0 Ur Specific [place] 1.009 L Urine Protein Negative Urine Ketones 1+ A Urine Blood Negative Urine Nitrate Negative Urine Bilirubin Negative Urine Urobilinogen Negative Ur Leukocyte Esterase Negative Urine Glucose Negative 11/18/17 05:19 WBC RBC Hgb Hct MCV MCH MCHC RDW Plt Count MPV Neut % (Auto) Lymph % (Auto) Thomas % (Auto) Eos % (Auto) Baso % (Auto) Absolute Neuts (auto) Absolute Lymphs (auto) Absolute Monos (auto) Absolute Eos (auto) Absolute Basos (auto) Absolute Nucleated RBC Neutrophils % Lymphocytes % Reactive Lymphs % Monocytes % Eosinophils % Basophils % Nucleated RBC % Abs Neuts (Manual) Abs Lymphs (Manual) Abs Monocytes (Manual) Absolute Eos (Manual) Abs Basophils (Manual) Normal RBC Morphology Target Cells Hem Pathologist Commnt INR (Anticoag Therapy) D-Dimer, Quantitative Sodium 138 L Potassium 3.5 Chloride 105 Carbon Dioxide 25 Anion Gap 8 BUN 3 L Creatinine 0.62 Est GFR ( Amer) 130.5 Est GFR (Non-Af Amer) 101.5 BUN/Creatinine Ratio 4.8 L Glucose 92 Calcium 8.3 L Total Bilirubin 0.80 AST 13 ALT 6 L Alkaline Phosphatase 104 Lactate Dehydrogenase Troponin I C-Reactive Protein 178.57 H Total Protein 6.9 Albumin 2.9 L Globulin 4.0 Albumin/Globulin Ratio 0.7 L Lipase < 10 L Beta HCG, Quant Urine Color Urine Appearance Urine pH Ur Specific [place] Urine Protein Urine Ketones Urine Blood Urine Nitrate Urine Bilirubin Urine Urobilinogen Ur Leukocyte Esterase Urine Glucose Hydralazine HCl (Apresoline Tab*) 75 mg PO TID [facility] Last Admin: 11/17/17 20:39 Dose: 75 mg Hydroxyurea (Hydrea Cap*) 1,000 mg PO BID [facility] Last Admin: 11/17/17 20:42 Dose: Not Given Metoclopramide HCl (Reglan Tab*) 10 mg PO Q8H [facility] Last Admin: 11/18/17 05:37 Dose: Not Given Metoprolol Tartrate (Lopressor Tab*) 25 mg PO BID [facility] Last Admin: 11/17/17 20:41 Dose: 25 mg Morphine Sulfate (Morphine Vial*) 4 mg IV Q2H PRN PRN Reason: PAIN Last Admin: 11/17/17 23:17 Dose: 4 mg Omeprazole (Prilosec Cap*) 20 mg PO QAM [facility] Last Admin: 11/17/17 09:23 Dose: 20 mg Ondansetron HCl (Zofran Inj*) 4 mg IV Q4H PRN PRN Reason: NAUSEA Ondansetron HCl (Zofran Odt Tab*) 4 mg PO Q6H PRN PRN Reason: NAUSEA Pharmacy Profile Note (Coumadin Daily Reminder*) 1 note FOLLOW UP 1700 [facility] Last Admin: 11/17/17 17:07 Dose: 1 note Potassium Chloride (Klor Con Er Tab*) 20 meq PO DAILY [facility] Last Admin: 11/17/17 12:27 Dose: 20 meq Warfarin Sodium (Coumadin Tab(*)) 6 mg PO DAILY@1700 [facility] PRN Reason: Protocol Last Admin: 11/17/17 17:07 Dose: 6 mg Zolpidem Tartrate (Ambien Tab*) 10 mg PO BEDTIME PRN PRN Reason: INSOMNIA Last Admin: 11/17/17 22:02 Dose: 10 mg Assessment: 52 yo F w PMH of Hb SC disease, chronic portal vein thrombosis on coumadin, presenting with abdominal pain of unclear etiology, with acute exacerbation after variceal banding by GI. She still has abdominal pain that I do NOT feel is related to her sickle cell disease (no increase in reticulocytes, normal bilirubin, not classic pain). There is a question of whether this could be related to mesenteric ischemia related to poor flow. Appreciate Dr. Melendez's input. will get abd US today and may need consultation with hepatic team at [place]. Plan: Abdominal pain: unclear etiology cont morphine IV, encouraged her to use US today Hb SC: no evidence of exacerbation cont hydrea PVT: cont coumadin HTN: cont bblocker and hydralazine dvt prophylaxis on coumadin
[2017-11-18] MEDS: HydroxyUREA CAP* 500 MG CAP PO SCH ×3 (09:45→22:06)
[2017-11-18] MEDS: hydrALAZINE TAB* 25 MG PO SCH ×3 (09:46→21:57)
[2017-11-18] MEDS: Omeprazole CAP* 20 MG PO SCH (09:47)
[2017-11-18] MEDS: Potassium Chlor TAB* 20 MEQ TAB.ER PO SCH (09:47)
[2017-11-18] MEDS: Metoprolol Tartrate TAB* 25 MG PO SCH ×2 (10:08→21:57)
[2017-11-18] MEDS: Morphine VIAL* 4 MG/ML VIAL (1 ml vial) IV PRN ×3 (11:49→21:57)
--- NOTE | 2017-11-18 14:31 | RAD ---
INDICATION: Abdominal pain. COMPARISON: Comparison is made with a prior CT of the abdomen and pelvis from November 15, 2017. TECHNIQUE: Multiple real-time, Doppler tracings and color flow images of the celiac and mesenteric arteries were obtained. The exam is limited. The superior mesenteric vein was secured by overlying bowel gas. FINDINGS: The peak systolic velocity within the celiac artery was 68 cm/s and was in the proximal of the artery. The peak systolic velocity in the adjacent aorta was 112 cm/s. The patient is status post splenectomy. The hepatic artery appears patent. The peak systolic velocity was 66 cm/s. The superior mesenteric artery and was obscured by overlying bowel gas although appears widely patent on the prior CT exam.. The peak systolic velocity within the inferior mesenteric artery artery was 55 cm/s. The portal vein was not visualized consistent with portal vein occlusion seen on the prior CT study. IMPRESSION: 1. THE CELIAC AND INFERIOR MESENTERIC ARTERIES APPEAR PATENT ALTHOUGH THE PEAK SYSTOLIC VELOCITIES ARE DECREASED BELOW THE NORMAL RANGE. 2. THE PORTAL VEIN WAS NOT VISUALIZED CONSISTENT WITH OCCLUSION NOTED ON THE PRIOR CT STUDY. 3. THE SUPERIOR MESENTERIC ARTERY IS OBSCURED BY OVERLYING BOWEL GAS ALTHOUGH APPEARS WIDELY PATENT ON THE PRIOR CT STUDY.
[2017-11-18] MEDS ORDERED: Iohexol 300* (CONTRAST) 10 ML SDV IV ONE (17:07)
[2017-11-18] MEDS ORDERED: Ondansetron 40 MG VIAL* 2 MG/ML 20 ML VIAL IV PRN (18:00)
[2017-11-18] MEDS: Warfarin TAB(*) 6 MG PO SCH (18:09)
--- NOTE | 2017-11-18 22:00 | RAD ---
CLINICAL HISTORY: Abdominal pain in a patient with sickle cell disease and history of portal vein thrombosis. COMPARISON: Similar CT abdomen pelvis November 15, 2017 TECHNIQUE: CT examination of the abdomen and pelvis from the lung bases through the initial tuberosities acquired before and after the patient received 131 mL Omnipaque 300 intravenously prior to imaging.The patient received oral contrast as well prior to imaging. FINDINGS: Unless otherwise specified comparisons below reference to November 15, 2017 CT examination. VISUALIZED LUNG BASES: There is been interval enlargement of the left-sided pleural effusion with compressive atelectasis of the adjacent dependent left lower lobe. ABDOMEN AND PELVIS: Similar the prior CT examination there is biliary gas mostly in the left lobe of the liver. The spleen is surgically absent The adrenal glands are grossly normal in appearance. Although the pancreas is normal in attenuation, there is infiltration of the surrounding peripancreatic fat. The gallbladder is surgically absent with clips in the gallbladder fossa.. The kidneys are normal in appearance without focal mass, calcification or signs of hydronephrosis. Oral contrast has progressed as far as the rectum. There is mild distention of the distal small bowel up to 2.4 cm in diameter which is not considered pathologically dilated. There is questionable wall thickening of the terminal ileum measuring less than 5 mm in diameter. Beginning at the descending colon there is questionable mild wall thickening extending as far as the rectum. There is infiltration of the fat of the mesenteric root with scattered peritoneal ascites. The abdominal aorta and iliac arteries are normal in course and diameter. There is infiltration of the subcutaneous fat overlying the left worse than right abdominal wall. Degenerative changes include multilevel loss of intervertebral disc height involving the lower thoracic and lumbar spine.There are no sinister bone lesions. IMPRESSION: 1. Since the November 15, 2017 CT examination, there has been interval increase in the size of the left pleural effusion, infiltration of the mesenteric fat with scattered ascites as well as infiltration of the subcutaneous fat consistent with anasarca. This constellation of findings could be seen in the setting of worsening fluid overload. Alternatively infiltration of the mesenteric fat could be due to portal venous hypertension. 2. There is mild wall thickening involving the terminal ileum and the colon extending from the descending colon to the rectum. Please correlate to clinical signs or symptoms of inflammatory bowel disease and/or infectious colitis. 3. Additional chronic, degenerative and postsurgical changes described in the body the report similar in appearance to the prior CT examination.
[2017-11-18 23:58] VITALS: BP 124/59
[2017-11-19] MEDS: Morphine VIAL* 4 MG/ML VIAL (1 ml vial) IV PRN (01:07)
--- NOTE | 2017-11-19 05:05 | PN ---
GASTROENTEROLOGY CONSULT FOLLOWUP: DATE OF VISIT: HISTORY: This 52-year-old woman was admitted with nausea and epigastric and right upper quadrant pain 4 days ago. At that time, it was 5 days after endoscopic variceal ligation of distal esophageal varices. The varices had been noted on 10/05/17 when she underwent diagnostic endoscopy investigating abdominal pain that had begun somewhere around the holidays or before. At the time of the diagnostic endoscopy in September, she was on warfarin to prophylax for sickle cell crisis. It was stopped and therefore at followup endoscopy on 11/09/17 bands were placed in the distal esophagus. There was no obvious complication or trouble immediately. She had fluctuating symptoms over the next several days. She came to the emergency room on 11/09/17. Her labs at presentation showed white count of 7.1, hemoglobin 8.6, hematocrit 26, and CRP 103. Her LFTs were normal. Albumin 3.2 and lipase 12. Creatinine 0.71, BUN 6. CT scan was nonspecific showing potentially some intrahepatic gas bubbles (prior sphincterotomy) and a nonspecific dirty fat appearance in the root of the mesentery and near the pancreas consistent with vascular congestion. She clinically was not appearing to have pancreatitis. Over the next several days, she just continued to complain of epigastric and right upper quadrant distress and intermittent anorexia and nausea. She had no vomiting and no fever except for at 1900 hours on 11/17/17 when she went to 100.2. No specific action was taken and it resolved. She was not treated with antibiotics. During the hospital stay, she was given her usual hydroxyurea, metoprolol and omeprazole and nonspecifically was given metoclopramide and Zofran. She has a past history of hemoglobin SC disease with crises. She is on warfarin to prevent further mesenteric clotting and sickle crises. She takes Hydrea for 4-5 years per her csr in [place]. She just moved here to [place] and is followed by the hematology group here, Dr. Jered Toledo. She has a history of portal vein thrombosis of uncertain duration. She did have esophageal varices more than 10 years ago when living in [place] and had banding then. She cannot recall what was going on then as to why she had the first EGD or what the varices then were doing. There were a couple of more bandings in [place] and 1 or 2 in [place] while living there for 4 years. Thus, the banding 9 days ago was at least her 5th and possibly 6th or 7th such session. She and her believe the first banding was done after an episode of bleeding. They are not too secure on the details of her mesenteric vascular episodes or sequence of events, etc and have a very extended animated discussion trying to settle on whose memory is correct. Today, 11/18/17, she did have vascular Doppler of the abdomen, which had trouble identifying veins. The arterial supply showed reduced velocities in the celiac and inferior mesenteric artery at 65 and 55 compared to an aortic velocity of 110. This was felt to be abnormally low. Veins were difficult to see. Ultimately, the source of her abdominal pain in the last 5 to 6 months is unclear. She believes the pain exacerbated since the most recent banding is similar to that more longstanding pain. Since 2 endoscopies prior to banding did not provide an answer, another one was not done during this hospital stay. It is also notable that CT scan repeated today basically showed more congestion at the root of the mesentery and some prominent thickening of the mucosa of the rectum and sigmoid, although contrast column had gotten further down into that area on today's scan compared to the one 4 days ago and that might explain the image change. The small bowel looked pretty normal on today's scan. There was no focal abscess. She has a past history of hysterectomy, abdominoplasty, splenectomy, cholecystectomy, and endoscopic sphincterotomy. A preliminary planning phone call was placed to [facility] in conversation with Dr. Mel Umanzor. Transfer is being pursued to get an expert opinion on her pain and her portal venous abnormalities. A specialized hepatology center is essential for her care. [id number]/[facility] #: [id number] [facility]
--- NOTE | 2017-11-19 15:33 | DS ---
AMENDED REPORT NOW INCLUDES COSIGNER DESIGNATION - ESIGNED BEFORE ADJUSTMENT DISCHARGE SUMMARY: DATE OF ADMISSION: 11/15/17 DATE OF TRANSFER: 11/18/17. PROVIDER: Merry Moran NP. ATTENDING PHYSICIAN: Dr. Nico Qureshi * (dictated by Merry Moran NP). PRIMARY DIAGNOSES: 1. 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 2. Abdominal pain, post banding. SECONDARY DIAGNOSES: 1. Acute mesenteric vein thrombosis in 2014. 2. Gastroesophageal reflux disease. 3. Hypertension. 4. Osteoarthritis. 5. Portal hypertension. 6. History of gallstones. PAST SURGICAL HISTORY: 1. Breast reduction. 2. Cholecystectomy. 3. Eye surgery. 4. Hysterectomy. 5. Splenectomy in 2001. 6. Tummy tuck in 1999. MEDICATIONS AT THE TIME OF TRANSFER: 1. Hydralazine 75 p.o. t.i.d. 2. Hydroxyurea 1000 mg p.o. b.i.d. 3. Reglan 10 mg p.o. q. 8 hours. 4. Lopressor 25 mg p.o. b.i.d. 5. Morphine 4 mg IV q. 2 hours. 6. Omeprazole 20 mg p.o. q.a.m. 7. Zofran 4 mg p.o. q. 6 hours. 8. Coumadin 6 mg p.o. daily. 9. Potassium chloride 20 mEq p.o. daily. 10. Ambien 10 p.o. at bedtime. Hospital medicine was asked to facilitate a transfer to [facility]. Dr. Melendez has discussed the case with Dr. Mel Umanzor, a weight loss consultant at [facility] who has agreed to accept the patient. HISTORY OF PRESENT ILLNESS AND HOSPITAL COURSE: Ms. Islas is a 52-year-old female with a history of hemoglobin SC disease status post cholecystectomy, splenectomy and known to have portal venous clotting for at least the past 10 years who has had multiple bandings more than 5 years ago and had her third and fourth banding just 6 days ago. She had an upper endoscopy investigating 4 to 5 months of abdominal pain that had not responded to trials of PPIs in September. At that time, varices were seen. Though she was on warfarin sickle cell prophylaxis and plan was made to hold that at a later date and then come back for banding. No clear cut cause of her abdominal pain that led to an September 2017 endoscopy. It was evident she had very mild antral gastritis and mild duodenitis. She came in for banding on 11/08/17 with 4 bands applied to a very fairly impressive varices in the distal esophagus. She went home, has been feeling pressure in her lower chest. She vomited once; the next day she was able to take water and had some lemonade but she was not eating. She felt a little better on 11/11/17 and 11/12/17 but then felt worse again on 11/14/17 and she was only taking crackers. She said there was pain and there was one episode of mild emesis yesterday being 11/14/17. She has been having chills. She does reports decreased bowel movements due to decreased intake. She had a small movement on 11/14/17. She did report some tarry stools a couple weeks ago before the banding. She did call the answering service the morning of 11/15 complaining of severe abdominal pain and was recommended to come to the emergency room for further evaluation. Ms. Islas was followed by Hematology/ Oncology Dr. Toledo for her sickle cell disease. Please refer to consultation and progress noted from hematology/oncology for further details and impression. Hematology and Oncology evaluated the patient on 11/18/17, they do not feel that her abdominal pain is related to sickle cell crisis at this time GI's impression is a 52-year-old female with portal hypertension based not on hepatic parenchymal disease but portal venous occlusion, has upper abdominal pain increasing shortly following an upper endoscopy with banding. The upper endoscopy was done to find cause of her abdominal pain but did not do so, though bandings were applied to the varices for the third time. At this time, there is nothing specific in her history, exam, or imaging to point specific complications of the endoscopy, it seems likely the bands may have in some areas secured portion of muscular layer. Her acute abdominal pain has been unresolved throughout her hospitalization. Dr. Melendez felt that she needed further evaluation by the hepatic team at [facility], so they were contacted for further evaluation. Vital signs: Temperature 100.1, pulse is 94, respirations are 18, O2 saturation was 96%, blood pressure 136/59. She did have a mesenteric artery Doppler; radiologist impression was: 1. The celiac and inferior mesenteric arteries appear patent although the peak systolic velocities are decreased below the normal range. 2. The portal vein is not visualized consistent with occlusion noted on prior CT study. 3. The superior mesenteric artery is obscured by overlaying bowel gas although it appears widely patent on prior CT study. At this time, the patient is stable for transfer to [facility]. She will be transferred to Dr. Mel Umanzor's service at [facility]. MERRY MORAN, [employer] [id number]/[facility] #: [id number] [facility]
== END 2017-11-19 01:32 | disposition short-term general hospital (02) | DRG 662 ==
LOC: ED 07:22 → MED 14:43
PROVIDERS: ADMIT Internal Medicine Hematology & Oncology; ATTEND Internal Medicine
DX: D57.00 Hb-SS disease with crisis, unspecified (principal); I85.00 Esophageal varices without bleeding; K76.6 Portal hypertension; R10.11 Right upper quadrant pain; K21.9 Gastro-esophageal reflux disease without esophagitis; I10 Essential (primary) hypertension; M19.90 Unspecified osteoarthritis, unspecified site; G47.30 Sleep apnea, unspecified; Z86.718 Personal history of other venous thrombosis and embolism; Z87.19 Personal history of other diseases of the digestive system; Z88.8 Allergy status to other drugs, medicaments and biological substances; Z91.012 Allergy to eggs; Z79.01 Long term (current) use of anticoagulants; Z79.891 Long term (current) use of opiate analgesic; Z79.899 Other long term (current) drug therapy; Z83.2 Family history of diseases of the blood and blood-forming organs and certain disorders involving the immune mechanism
CPT/HCPCS: 36415; 74177; 74178; 80048; 80053; 81003; 83605; 83615; 83690; 84484; 84702; 85025; 85045; 85060; 85379; 85610; 85730; 86140; 93005; 93975; 94660; 99222; 99232; 99284; A9270-GY; J2270; J2405; J3480; Q9967

== ENCOUNTER 2017-11-24 11:41 | Inpatient (IN) | payer BC ==
[2017-11-24] MEDS ORDERED: Ondansetron INJ* 2 MG/ML VIAL IV PRN (12:22)
[2017-11-24] MEDS ORDERED: NS 0.9% 1000 ML* 1,000 ML IV SCH (12:30)
[2017-11-24] MEDS: hydrALAZINE TAB* 25 MG PO SCH ×2 (13:17→21:00)
[2017-11-24] MEDS: oxyCODONE/Acetamin 5/325 MG* TAB PO PRN ×2 (15:59→22:35)
[2017-11-24 16:12] LABS: INR 3.56 (0.77-1.02)
[2017-11-24 16:22] LABS: EGFR Non-African American 103.4 (>60)
[2017-11-24 16:45] LABS: INR 3.42 (0.77-1.02)
[2017-11-24 16:53] LABS: Urine Appearance Clear; Urine Blood Negative (Negative); Urine Color Yellow; Urine Ketones Negative (Negative); Urine Protein Negative (Negative); Urine Urobilinogen Positive (Negative)
--- NOTE | 2017-11-24 17:34 | RAD ---
Indication: Left upper extremity swelling. Duplex Doppler sonography of the left upper survey was performed. No flow is detected in the left internal jugular vein. Clot is noted in the left internal jugular vein. Thrombosis of left subclavian vein is also noted. The distal left subclavian vein and axillary vein appears patent. The left basilic vein is noncompressible. The left brachial vein and cephalic vein are patent and compressible. The left radial vein and ulnar vein are patent. IMPRESSION: There is echogenic material with enlargement and no flow noted within the distal left internal jugular vein and left subclavian vein. There is also thrombosis of the left basilic vein.
--- NOTE | 2017-11-24 17:34 | RAD ---
Indication: Ascites. 4 quadrant scanning of the abdomen for ascites demonstrates a trace amount of ascites in the right lower quadrant measuring 3.7 x 1.9 cm. IMPRESSION: Trace amount of ascites in the right lower quadrant is identified.
[2017-11-24] MEDS ORDERED: Phytonadione Oral Solution* 5 MG/25 ML UDC PO ONE (18:43)
[2017-11-24] MEDS: NS 0.9% w/ 40 Meq KCL 1000 ML* 1,000 ML IV SCH (19:44)
[2017-11-24] MEDS: Metoprolol Tartrate TAB* 25 MG PO SCH (21:01)
[2017-11-24] MEDS: Enoxaparin(*) 100 MG/ML SYR SUBCUT SCH (21:02)
[2017-11-24] MEDS: Zolpidem TAB* 5 MG PO SCH (22:34)
[2017-11-25] MEDS: NS 0.9% w/ 40 Meq KCL 1000 ML* 1,000 ML IV SCH (05:51)
[2017-11-25 06:52] LABS: Hematocrit 24 % (35-47); Mean Corpuscular HGB Conc 34 g/dl (31-36); Mean Corpuscular Hemoglobin 31 pg (27-31); Mean Corpuscular Volume 90 fL (80-97); Mean Platelet Volume 8.9 um3 (7.4-10.4); Platelet Count 381 10^3/ul (150-450); Red Blood Count 2.63 10^6/ul (4.0-5.4); Red Cell Distribution Width 20 % (10.5-15); White Blood Count 8.1 10^3/ul (3.5-10.8)
[2017-11-25 07:03] LABS: INR 2.24 (0.77-1.02)
[2017-11-25 07:06] LABS: EGFR Non-African American 114.1 (>60)
[2017-11-25] MEDS: Enoxaparin(*) 100 MG/ML SYR SUBCUT SCH ×2 (07:12→19:32)
[2017-11-25] MEDS: Metoprolol Tartrate TAB* 25 MG PO SCH ×2 (07:13→19:31)
[2017-11-25] MEDS: hydrALAZINE TAB* 25 MG PO SCH ×3 (07:13→19:30)
[2017-11-25] MEDS: oxyCODONE/Acetamin 5/325 MG* TAB PO PRN ×3 (07:54→23:06)
[2017-11-25 07:57] LABS: Monocytes % 8 % (0-7)
--- NOTE | 2017-11-25 08:41 | RAD ---
INDICATION: Shortness of breath. COMPARISON: There are no prior studies available for comparison. TECHNIQUE: Dual-energy PA and lateral views of the chest were obtained. FINDINGS: The heart is within normal limits in size. Mediastinal and hilar contours appear within normal limits. The lungs are underinflated. There is a patchy infiltrate present at the left lung base and a small left pleural effusion. The right lung appears clear. IMPRESSION: SMALL LEFT BASILAR INFILTRATE AND PLEURAL EFFUSION.
--- NOTE | 2017-11-25 10:27 | PN ---
Progress Note - Progress Note Date of Service: 11/25/17 SOAP: Subjective: []Better today. Pain is controlled and no diarrhea but has not been eating. Neck is a little better. No nausea and has not had fevers since admission. Enoxaparin Sodium (Lovenox(*)) 90 mg SUBCUT Q12H [facility] Last Admin: 11/25/17 07:12 Dose: 90 mg Hydralazine HCl (Apresoline Tab*) 75 mg PO TID [facility] Last Admin: 11/25/17 07:13 Dose: 75 mg Potassium Chloride/Sodium Chloride (Ns 0.9% W/ 40 Meq Kcl 1000 Ml*) 1,000 mls @ 100 mls/hr IV PER RATE [facility] Last Admin: 11/25/17 05:51 Dose: 100 mls/hr Metoprolol Tartrate (Lopressor Tab*) 25 mg PO BID [facility] Last Admin: 11/25/17 07:13 Dose: 25 mg Ondansetron HCl (Zofran Inj*) 4 mg IV Q4H PRN PRN Reason: NAUSEA/VOMITING Oxycodone/Acetaminophen (Percocet 5/325 Tab*) 1 tab PO Q4H PRN PRN Reason: Pain Last Admin: 11/25/17 07:54 Dose: 1 tab Zolpidem Tartrate (Ambien Tab*) 5 mg PO BEDTIME [facility] Last Admin: 11/24/17 22:34 Dose: 5 mg Objective: [] Vital Signs Temp Pulse Resp BP Pulse Ox 98.3 F 89 18 143/78 100 11/25/17 07:57 11/25/17 07:57 11/25/17 07:57 11/25/17 07:57 11/25/17 07:57 HEENT: Neck edema stable to slightly improved CTA RRR S1S2 +BS, obese, non tender no ELIZABETH and good pulses US neck + IJ, subclavian DVT US abd - Trace ascites Assessment: []52 year old with Hgb SC disease on HU chronically. Presents with persistent abdominal pain of unclear etiology, fevers and new subclavian DVT. Plan: []1. DVT. Uncommon to have thrombosis on therapeutic Coumadin. Liver failure may complicate INR and not accurately reflect thrombin level. However, differential includes lupus anticoagulant, auto immune disease, occult malignancy. - Lovenox in hospital and discharge on Arixtra - Lupus anticoagulant pending, check TRINI,ESR - MRI liver 2. Abdominal pain. Will discuss with Dr. Melendez, question of inflammatory bowl disease, no evidence of mesenteric thrombosis. - heck lactic acid. - Start regular diet - Stool for C.Diff and leukocytes 3. Anxious for discharge, try to get home over weekend.
[2017-11-25] MEDS ORDERED: Phytonadione Oral Solution* 5 MG/25 ML UDC PO ONE (10:29)
[2017-11-25] MEDS ORDERED: Gadoteridol* (CONTRAST) 279.3 MG/ML 10 ML IV ONE (12:26)
[2017-11-25] MEDS: Potassium Chlor TAB* 20 MEQ TAB.ER PO SCH ×2 (12:59→19:31)
--- NOTE | 2017-11-25 13:57 | RAD ---
Indication: Liver disease. Image sequences: Axial diffusion, coronal T2, water weighted axial T1, axial T2 fat sat images were obtained. Dynamic axial images were obtained after intravenous injection of 20 mL of ProHance. Lung bases demonstrates left pleural effusion. Compressive atelectasis of the left lung is noted. The liver is normal in size. There is intrahepatic ductal dilatation in the right and left lobe predominantly in the left lobe. There is an ill-defined mass at the central liver at the confluence of the left and right hepatic ducts surrounding the common hepatic duct with vague area of enhancement. This measures approximately 3.1 cm in length x 3.9 cm in width x 2.4 cm AP. This is a worrisome for a cholangiocarcinoma. The portal vein is not well-defined and I can't totally exclude portal vein thrombosis. The pancreas demonstrates no mass or pancreatic duct dilatation. Moderate-sized left pleural effusion is noted. No adrenal lesions are noted. The kidneys demonstrate symmetric nephrograms without focal masses. Small amount of ascites is noted. IMPRESSION: There is an ill-defined infiltrating mass in the central portion of the liver junction between the left and right bile ducts which are dilated. This demonstrates delayed enhancement and is consistent with a cholangiocarcinoma or Klatskin's tumor. A very prominent right hepatic artery is noted. The portal vein is not well visualized and the possibility of portal hypertension should BE considered. Left pleural effusion with left basilar atelectasis is noted.
[2017-11-25] MEDS: Zolpidem TAB* 5 MG PO SCH (23:04)
[2017-11-26 05:45] LABS: INR 1.32 (0.77-1.02)
[2017-11-26 05:49] LABS: Hematocrit 23 % (35-47); Hemoglobin 7.6 g/dl (12.0-16.0); Mean Corpuscular HGB Conc 33 g/dl (31-36); Mean Corpuscular Hemoglobin 29 pg (27-31); Mean Corpuscular Volume 90 fL (80-97); Mean Platelet Volume 9.2 um3 (7.4-10.4); Platelet Count 364 10^3/ul (150-450); Red Blood Count 2.61 10^6/ul (4.0-5.4); Red Cell Distribution Width 19 % (10.5-15); White Blood Count 10.5 10^3/ul (3.5-10.8)
[2017-11-26 06:28] LABS: EGFR Non-African American 114.1 (>60)
[2017-11-26 06:55] LABS: Monocytes % 14 % (0-7)
[2017-11-26 07:25] VITALS: BP 146/72
[2017-11-26] MEDS: Metoprolol Tartrate TAB* 25 MG PO SCH (08:55)
[2017-11-26] MEDS: hydrALAZINE TAB* 25 MG PO SCH (08:55)
[2017-11-26] MEDS: Potassium Chlor TAB* 20 MEQ TAB.ER PO SCH (08:55)
[2017-11-26] MEDS: Enoxaparin(*) 100 MG/ML SYR SUBCUT SCH (08:56)
--- NOTE | 2017-11-26 09:42 | PN ---
Progress Note - Progress Note Date of Service: 11/26/17 SOAP: Subjective: [] Enoxaparin Sodium (Lovenox(*)) 90 mg SUBCUT Q12H [facility] Last Admin: 11/26/17 08:56 Dose: 90 mg Hydralazine HCl (Apresoline Tab*) 75 mg PO TID [facility] Last Admin: 11/26/17 08:55 Dose: 75 mg Metoprolol Tartrate (Lopressor Tab*) 25 mg PO BID [facility] Last Admin: 11/26/17 08:55 Dose: 25 mg Ondansetron HCl (Zofran Inj*) 4 mg IV Q4H PRN PRN Reason: NAUSEA/VOMITING Oxycodone/Acetaminophen (Percocet 5/325 Tab*) 1 tab PO Q4H PRN PRN Reason: Pain Last Admin: 11/25/17 23:06 Dose: 1 tab Potassium Chloride (Klor Con Er Tab*) 20 meq PO BID [facility] Last Admin: 11/26/17 08:55 Dose: 20 meq Zolpidem Tartrate (Ambien Tab*) 5 mg PO BEDTIME [facility] Last Admin: 11/25/17 23:04 Dose: 5 mg Objective: [] Vital Signs Temp Pulse Resp BP Pulse Ox 98.5 F 86 12 146/72 100 11/26/17 07:20 11/26/17 07:20 11/26/17 08:00 11/26/17 07:20 11/26/17 07:20 HEENT: Neck edema stable to slightly improved No UE edema CTA RRR S1S2 +BS, obese, mild tenderness lower abd. no ELIZABETH and good pulses MRI Liver - Possible central tumor an delayed contrast images. Differential also includes collection of varacies. C. Diff negative Stool Lactoferrin + Assessment: []52 year old with Hgb SC disease on HU chronically. Presents with persistent abdominal pain of unclear etiology after banding of varices, fevers and new subclavian DVT. She is now on direct Xa inhibitor for thrombosis. Etiology of abdominal pain is unclear, question of liver tumor on MRI but not seen on CT scan. She is very anxious to go home. Plan: []1. DVT. - Discharge on Arixtra 7.5 mg sq daily. - Coagulation studies, LAC, ACL are still pending. 2. Abdominal pain and liver mass. Will discuss again with Dr. Melendez, question of inflammatory bowl disease or colitis given + stool WBC. - US of liver to evaluate mass, will review with Dr. Carlin if biospy is indicated - Possible colonoscopy - Follow up in clinic next week. 3. Anemia. Iron deficiency from chronic GIB. Not good candidate for oral iron given abdominal pain. Will plan IV iron in clinic. 4. Hgb SC. Conitnue HU 1000 mg po daily and stay hydrated
--- NOTE | 2017-11-26 22:06 | DS ---
DISCHARGE SUMMARY: DATE OF ADMISSION: 11/24/17 DATE OF DISCHARGE: 11/26/17 DISCHARGE DIAGNOSES: 1. Acute thrombosis, left internal jugular and subclavian veins. 2. Hemoglobin sickle cell disease. 3. Cirrhosis and abdominal pain, status post variceal banding. 4. Questionable liver mass on MRI. HOSPITAL COURSE: She was admitted 2 days ago from clinic when she presented with fevers of 101, acute swelling of the left neck and progressive abdominal pain. Evaluation included an ultrasound of the left neck, which showed an internal jugular thrombosis. She had been on Coumadin with an INR at presentation of 3.42. There had been a brief pause in the Coumadin for prior gastric banding, but thrombosis occurred 9 days after restarting, considered Coumadin failure and was transitioned to Lovenox 90 mg subcu b.i.d. Swelling and pain have improved subsequently. Abdominal pain was controlled with oral medications during the hospital stay. She had an abdominal MRI that showed a questionable central liver mass. This was reviewed in detail with Radiology and differential also includes pooling of contrast and varices as lesion was seen on delayed contrast studies. Plan will be a followup ultrasound of the liver to further assess. She had persistent anemia during the hospitalization with evaluation showing iron deficiency likely secondary to variceal bleeding. We will plan IV iron as outpatient. She had hypercoagulable workup that is pending at the time of discharge. She ate well yesterday and had several bowel movements. Stool was negative for C. diff with positive stool leukocytes. DISCHARGE PLANS: 1. Thrombosis. She has a difficult time with Lovenox shots; will be discharged on Arixtra 7.5 mg subcu daily. Discussed it may be difficult to get insurance coverage and she will pay out of pocket for initial course. She will need to follow up in clinic over the next 7 days, coagulation studies pending at the time of discharge. 2. Abdominal pain. Differential diagnosis includes pain post variceal banding , occult colitis, questionable finding on MRI. Pain medicine adequate at this time. We will plan liver ultrasound and followup in clinic next week. We will discuss with Dr. Melendez colonoscopy. 3. Iron deficiency anemia. We will plan IV iron in clinic next week. 4. Hemoglobin SC disease. Continue hydroxyurea. 5. Potassium 4.2, follow off potassium DISCHARGE MEDICATIONS: 1. Hydralazine 75 mg p.o. t.i.d. 2. Oxycodone 5 mg q.4 hours p.r.n. 3. Ambien 10 mg p.o. q.h.s. 4. Arixtra 7.5 mg p.o. daily. DISCHARGE INSTRUCTION: Followup will be with me in clinic within 7 days. [id number]/[facility] #: [id number] MTDD
== END 2017-11-26 11:01 | disposition home or self-care (01) | DRG 197 ==
LOC: MED 12:44
PROVIDERS: ADMIT Internal Medicine Hematology & Oncology; ATTEND Internal Medicine Hematology & Oncology
DX: I82.C12 Acute embolism and thrombosis of left internal jugular vein (principal); K92.2 Gastrointestinal hemorrhage, unspecified; K76.6 Portal hypertension; R18.8 Other ascites; D57.1 Sickle-cell disease without crisis; I82.B12 Acute embolism and thrombosis of left subclavian vein; K21.9 Gastro-esophageal reflux disease without esophagitis; I10 Essential (primary) hypertension; M19.90 Unspecified osteoarthritis, unspecified site; K74.60 Unspecified cirrhosis of liver; R16.0 Hepatomegaly, not elsewhere classified; R10.9 Unspecified abdominal pain; D50.9 Iron deficiency anemia, unspecified; Z79.01 Long term (current) use of anticoagulants; Z88.8 Allergy status to other drugs, medicaments and biological substances; Z88.1 Allergy status to other antibiotic agents; Z91.012 Allergy to eggs; Z90.49 Acquired absence of other specified parts of digestive tract; Z90.81 Acquired absence of spleen; Z90.710 Acquired absence of both cervix and uterus; Z68.35 Body mass index [BMI] 35.0-35.9, adult; Z79.891 Long term (current) use of opiate analgesic; Z91.018 Allergy to other foods
CPT/HCPCS: 36415; 71046; 74182; 76705; 80053; 81003; 82728; 83540; 83550; 83605; 83630; 83735; 85025; 85610; 85613; 85652; 85730; 86038; 86147; 87040; 87493; 99223; 99233; 99239; A9270-GY; A9579; J1650

== ENCOUNTER 2018-05-23 09:14 | Day surgery (SDC) | payer BC ==
--- NOTE | 2018-05-15 20:07 | HP ---
CC: Kiera Thao MD; Jered Toledo MD * ADMISSION HISTORY AND PHYSICAL: DATE OF ADMISSION: 05/23/18 ATTENDING PHYSICIAN: Demetrio Santiago MD * (JUSTICE Larson) CHIEF COMPLAINT: Anal fissure and anal skin tag. HISTORY OF PRESENT ILLNESS: This is a 52-year-old female with multiple medical problems (see below) who, in October of this year, underwent Botox injection with Dr. Santiago for anal fissure. She had good result with resolution of her anorectal pain within days. This was maintained for the next few months. However, in February, she noted return of pain that was similar to what she had had previously, which she described as being to the left side and primarily at the time of bowel movement and lasting for a couple of hours thereafter. There may have been some blood in the toilet water in February, but since then only occasional blood noted on the toilet paper. She does have constipation alternating with diarrhea and uses stool softeners on a p.r.n. basis. She also has been using nitroglycerin ointment topically of late. She was seen in the office by Dr. Santiago on 04/24/18, at which time he reviewed her history. A limited exam at that time revealed a fissure at the 11 o'clock position (the patient prone) which is moderately tender and a large skin tag at the 6 o'clock position which was nontender. A digital rectal exam was not done at that time due to the patient's discomfort. His impression was that of a recurrent fissure and he recommended resumption of the use of nitroglycerin ointment. He also discussed surgical options. At this point, the patient would like to try the Botox injection again as she had had good results. She would also like to have the skin tag excised as it does interfere with perianal hygiene. She understands the indications, risks, benefits, and alternatives and would like to proceed as scheduled with Botox injection for anal fissure and excision of anal skin tag. 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 She was treated in late October with banding of esophageal varices and was off her Coumadin for 5 days for that procedure. She subsequently had fevers and abdominal pain, for which she was admitted in late October and then subsequently admitted from 11/24/17 to 11/26/17 with findings of an acute thrombosis of the left internal jugular and subclavian veins. Upon discharge, she did use Lovenox initially for about a month but then was put back on her usual maintenance anticoagulation with warfarin with dose adjustment. An MRI during that admission showed a question of liver mass. Ultrasound on 12/02/17 did not visualize any liver mass, though she is scheduled for repeat ultrasound exam in the near future and is contemplating whether an MRA would be indicated. She will discuss that with Dr. Toledo. She is treated for sleep apnea on CPAP and also treated for hypertension. She has decreased visual acuity in her right eye and she is currently being treated by Physical Therapy for lymphedema of the left upper extremity as well as bilateral lower extremities (she does not have a history of lower extremity DVT) . 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 CURRENT MEDICATIONS: 1. Hydrea 500 mg b.i.d. 2. Warfarin 6 mg daily (the patient will maintain during the perioperative period). 3. Metoprolol 25 mg b.i.d. 4. Hydralazine 25 mg 3 tablets t.i.d. 5. Zaleplon 10 mg q.h.s. 6. Trazodone 50 mg q.h.s. 7. Nitroglycerin ointment topically for the perianal region p.r.n. 8. Oxycodone 5 mg b.i.d. p.r.n. (uses infrequently). 9. Colace 100 mg 2 to 3 times daily p.r.n. ALLERGIES: CIPRO (hives), INDERAL (the patient does not recall reaction), EGGS and EGG DERIVATIVES (nausea, though she does eat eggs). FAMILY HISTORY: Father age 59 from a PE. No other known family history of thromboembolic disease. The patient did have hypercoagulability testing done by Dr. Toledo, but she is not aware of any positive results. No family history of anesthesia problems or bleeding disorders. SOCIAL HISTORY: The patient is . Her niece also lives with her. 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 She denies history of tobacco. She drinks on average 1 to 2 drinks per month. She denies any other recreational drug use. REVIEW OF SYSTEMS: General: No recent constitutional symptoms or acute illnesses other than those described above. HEENT: Eyes: No recent changes or additions. Ears, Nose, and Throat: No new problems reported. She still has some left neck swelling that is improving gradually. Teeth: No problems reported. Cardiovascular: She has a longstanding murmur. She is treated for hypertension. See also above for recent IJ and left subclavian vein thrombosis. Respiratory: No history of asthma, chronic cough, or shortness of breath. GI : No additional symptoms reported other than noted in the HPI. She has had colonic polyps removed in the past and is planning to be scheduled before the end of the year for surveillance colonoscopy. : No problems reported. Breasts Exam: Mammogram had been done recently (radiologist is waiting for comparison studies for her mammogram). Pap smear and pelvic exam done in December and reportedly normal. Hematological: Sickle cell disease as above and history of multiple venous thrombosis events, on chronic anticoagulation. She has also recently received iron infusions as an outpatient for iron deficiency. Endocrine: No diabetes or thyroid dysfunction. PHYSICAL EXAMINATION GENERAL: Well-nourished, obese -Turkish woman, in no acute distress. VITAL SIGNS: Height 64 inches, weight 206 pounds. Blood pressure 122/84, pulse 78, respirations 18. HEENT: Pupils equal, round, and reactive. EOMs intact. No conjunctival pallor. Oropharynx: Teeth in good repair. No intraoral lesions. NECK: No lymphadenopathy in the cervical or supraclavicular regions. No thyromegaly or masses. No obvious left neck swelling. LUNGS: Clear to auscultation. No rales or wheezes. HEART: Regular rate and rhythm. She has a soft holosystolic murmur heard throughout the precordium. BREASTS: Not examined. She is status post bilateral breast reduction. ABDOMEN: Soft with mild tenderness in the epigastrium which she states is consistent with her usual. No palpable masses or organomegaly. Multiple well- healed surgical scars. GENITALIA: Not done (see above per HPI). RECTAL: Not done (see above per HPI). BACK: No spinous process or CVA tenderness. EXTREMITIES: Not specifically examined. NEUROLOGICAL: Grossly intact. SKIN: Warm and dry. No suspicious rashes or lesions. IMPRESSION: Anal fissure and anal skin tag. PLAN: Botox injection for anal fissure and excision anal skin tag. JUSTICE LARSON [id number]/[facility] #: [id number] [facility]PITALAbad
[~2018-05-23 09:14] MED LIST changes: +Dexamethasone IV* 4 MG/ML 1 ML (4 MG) IV SLOW PU ONE; +Famotidine IV* 10 MG/ML 2 ML (20 mg) IV ONE; -Famotidine TAB* 20 MG PO ONE
[2018-05-23] MEDS ORDERED: Dexamethasone IV* 4 MG/ML 1 ML (4 MG) ONE (09:15)
[2018-05-23] MEDS ORDERED: Famotidine IV* 10 MG/ML 2 ML (20 mg) ONE (09:15)
[2018-05-23] MEDS ORDERED: fentaNYL* 50 MCG/ML 2 ML VIAL (100 MCG VIAL) ONE (09:17)
[2018-05-23] MEDS ORDERED: Midazolam* 1 MG/ML 2 ML VIAL (2 MG) ONE (09:17)
[2018-05-23] MEDS ORDERED: Onabotulinimtoxina 100 UNITS* VIAL IM ONE (09:19)
[2018-05-23] MEDS ORDERED: Lidocaine 1% INJ* 10 MG/ML 30 ML SDV ONE (09:23)
[2018-05-23] MEDS ORDERED: Lidocaine 2% JELLY* 20 ML (for OR use) ONE (09:23)
[2018-05-23] MEDS ORDERED: Bupivacaine 0.25% SDV PF* 10 ML VIAL INJ ONE (09:24)
[2018-05-23] MEDS ORDERED: Propofol* 10 MG/ML 20 ML BTL ONE ×2 (10:10→10:44)
[2018-05-23] MEDS ORDERED: Lidocaine 2% PF * 5 ML VIAL ONE (10:10)
[2018-05-23] MEDS ORDERED: Gelfoam 12-7 ADSORBABL SPONGE* 1 EA SPONGE ONE (10:55)
[2018-05-23] MEDS ORDERED: oxyCODONE TAB* 5 MG TAB ONE (11:53)
[2018-05-23] MEDS ORDERED: Acetaminophen IV 1GM/100ML * 100 ML ONE (11:53)
[2018-05-23 12:46] VITALS: BP 127/79
--- NOTE | 2018-05-24 10:21 | OP ---
DATE OF OPERATION: 05/23/18 - [facility] DATE OF : 67 SURGEON: Demetrio Santiago MD SUBSTANCE ABUSE SERVICES DIRECTOR: None. ANESTHESIOLOGIST: Dr. Davies. ANESTHESIA: Local MAC. PRE-OP DIAGNOSIS: Anal fissure and anal skin tag. POST-OP DIAGNOSIS: Anal fissure and anal skin tag. OPERATIVE PROCEDURE: Excision of anal tag and Botox injection to anal fissure. ESTIMATED BLOOD LOSS: Minimal. IV FLUIDS: Crystalloids. SPECIMENS: Anal skin tag. DRAINS: None. COMPLICATIONS: None. COUNTS: The instrument, needle, and sponge counts were correct. DESCRIPTION OF PROCEDURE: The patient was brought to the operating room, placed on table supine. She was administered intravenous sedation and she was positioned in lithotomy. She was prepped and draped in sterile fashion and time -out was performed. Local anesthetic was infiltrated into the area of the skin tag that was anterior and after adequate anesthesia, excision of the skin tag was performed using cautery. A 4-0 chromic was used in a running locking fashion achieving hemostasis. Next, 100 units of Botox was reconstituted in 2 mL of saline and this was injected at 3 o'clock, 9 o'clock, and 6 o'clock into the internal sphincter muscle with a 30-gauge needle. Gelfoam was rolled and placed in the anal canal to aid in hemostasis. The patient tolerated the procedure well and was transferred to the recovery room in stable condition. [id number]/[facility] #: [id number] MTDD
== END 2018-05-23 12:38 | disposition home or self-care (01) ==
LOC: OR 09:14
PROVIDERS: ATTEND Surgery
DX: K60.1 Chronic anal fissure (principal); K64.4 Residual hemorrhoidal skin tags; I10 Essential (primary) hypertension; R01.1 Cardiac murmur, unspecified; K21.9 Gastro-esophageal reflux disease without esophagitis; K58.9 Irritable bowel syndrome, unspecified; Z79.01 Long term (current) use of anticoagulants; D57.1 Sickle-cell disease without crisis; Z68.35 Body mass index [BMI] 35.0-35.9, adult
CPT/HCPCS: 88304; A9270-GY; J0585; J1100; J2250; J2704; J3010; J3490

== ENCOUNTER → 2019-01-04 10:55 | Day surgery (SDC) | payer BC ==
[~2019-01-04 10:55] MED LIST changes: -Buffered Lidocaine 0.9% SYRIN* 5 ML/SYR SYRINGE INTRADERM ONE; -Dexamethasone IV* 4 MG/ML 1 ML (4 MG) IV SLOW PU ONE; -Famotidine IV* 10 MG/ML 2 ML (20 mg) IV ONE; +Lidocaine 1% INJ* 10 MG/ML 30 ML SDV ONE
[2019-01-04 13:35] LABS: Body Fluid Source Pleural Fluid
--- NOTE | 2019-01-04 13:55 | PRO ---
THORACENTESIS REPORT: DATE OF PROCEDURE: 01/04/19 - [facility] PROCEDURE PERFORMED: Ultrasound-guided thoracentesis on the left side. PRE-PROCEDURAL DIAGNOSIS: Moderate left pleural effusion. ANESTHESIA: Local anesthesia with 1% lidocaine. DESCRIPTION OF PROCEDURE: Informed consent was obtained from the patient prior to the procedure after all the risks and benefits were thoroughly explained. The patient was sitting forward and leaning during the procedure. Ultrasound was utilized at bedside to localize the effusion. Appropriate time-out was agreed on by the attending staff. A CareFusion 8-Tai[place]ese thoracentesis catheter was utilized for the procedure. Area was disinfected with chlorhexidine after ultrasound localization was obtained and the site was marked. Sterile drape was placed. All barrier techniques were utilized. Local anesthesia was achieved with 1% lidocaine transdermally and intradermally down into the pleural space taking precautions. A #11 scalpel blade was used to make stab incision into the back. A CareFusion 8- [place]ese thoracentesis catheter was then inserted under manual suction taking precautions. Catheter was left in place and needle was removed; 450 mL of clear fluid was then aspirated under manual suction. No complications occurred during the procedure. The patient tolerated the procedure well. Catheter was then removed and a sterile Band-Aid was applied. Fluid was sent to the lab for cytochemical, microbiological, biochemical testing. A postprocedure chest x-ray is ordered and pending at the time of dictation. [id number]/[facility] #: [id number] [facility]
[2019-01-04 14:22] LABS: Body Fluid Mono 16 %
[2019-01-05 12:10] LABS: Lactate Dehydrogenase, BF 51 U/L
[2019-01-05 14:16] LABS: Fluid Type, Albumin PLEURAL
[2019-01-05 15:34] LABS: Fluid Type: PLEURAL; Triglycerides (BF) 16 mg/dL
== END | disposition home or self-care (01) ==
LOC: OR 10:55
PROVIDERS: ATTEND Internal Medicine
DX: J90 Pleural effusion, not elsewhere classified (principal); G47.33 Obstructive sleep apnea (adult) (pediatric); R18.8 Other ascites; I82.890 Acute embolism and thrombosis of other specified veins; I27.29 Other secondary pulmonary hypertension; R10.9 Unspecified abdominal pain; J98.11 Atelectasis; D57.3 Sickle-cell trait
CPT/HCPCS: 32554; 36415; 71045; 76604; 82042; 82150; 82945; 83615; 83986; 84157; 84311; 84478; 87070; 87205; 88112; 88305; 89051

== ENCOUNTER 2020-03-11 09:30 | Inpatient (IN) ==
[~2020-03-11 09:30] MED LIST changes: +Buffered Lidocaine 1% SYRIN 1 ml INTRADERM ONE; +Dexamethasone IV 4 MG/ML VIAL 1 ml VIAL IV SLOW PU ONE; +Lactated Ringers 1000 ml BAG 1,000 ML IV SCH; -Lidocaine 1% INJ* 10 MG/ML 30 ML SDV ONE; +Milrinone 20,000 MCG/100 ML BAG IV SCH
[2020-03-11] MEDS ORDERED: Dexamethasone IV 4 MG/ML VIAL 1 ml VIAL ONE ×2 (12:48→13:51)
[2020-03-11] MEDS ORDERED: Midazolam 2 mg/2 ml VIAL 1 mg/ml 2 ml VIAL (2 mg) ONE (12:48)
[2020-03-11] MEDS ORDERED: fentaNYL 100 mcg/2 ml 50 MCG/ML VIAL ONE ×3 (12:48→19:14)
[2020-03-11] MEDS ORDERED: Bupivacaine 0.5% SDV PF 30ML VIAL ONE (12:49)
[2020-03-11] MEDS ORDERED: EPHEDrine (Pressors) 50 MG/ML VIAL ONE (13:01)
[2020-03-11] MEDS ORDERED: Propofol 10 MG/ML 20 ML BTL ONE ×2 (13:07→17:53)
[2020-03-11] MEDS ORDERED: Sevoflurane BOTTLE ONE (13:11)
[2020-03-11] MEDS ORDERED: ceFAZolin 2 GM PREMIX 2 GM/50 ML BAG ONE (13:51)
[2020-03-11] MEDS ORDERED: Buffered Lidocaine 1% SYRIN 1 ml INTRADERM ONE (13:52)
[2020-03-11] MEDS ORDERED: ROPIVACAINE 5 MG/ML 30 ML BTL (0.5%) ONE (14:14)
[2020-03-11] MEDS ORDERED: Rocuronium 50 mg VIAL 10 mg/ml 5 ml VIAL (50 mg) ONE (14:20)
[2020-03-11] MEDS ORDERED: Lidocaine 2% PF 5 ML VIAL ONE (14:20)
[2020-03-11] MEDS ORDERED: HYDROmorphone 1 MG/1 ML SYRINGE ONE (16:20)
[2020-03-11] MEDS ORDERED: Ondansetron 4 mg VIAL 2 MG/ML 2 ml VIAL ONE (17:45)
[2020-03-11] MEDS ORDERED: diPHENhydraMINE IV 50 MG/ML 1 ml VIAL (BENADRYL) IV PRN (18:17)
[2020-03-11] MEDS ORDERED: Ondansetron ODT 4 mg TAB 4 MG TAB PO PRN (18:17)
[2020-03-11] MEDS ORDERED: Lactulose 30 ml UDC PO PRN (18:17)
[2020-03-11] MEDS ORDERED: Magnesium Hydroxide LIQ 30 ML UDC PO PRN (18:17)
[2020-03-11] MEDS ORDERED: oxyCODONE/Acetamin 5/325 mg TAB PO PRN ×2 (18:17)
[2020-03-11] MEDS ORDERED: diPHENhydraMINE 25 mg TAB PO PRN (18:17)
[2020-03-11] MEDS ORDERED: ASA-APAP-CAFFEINE ES (NF) TAB PO PRN (18:27)
[2020-03-11 18:57] LABS: Hematocrit 28 % (35-47); Hemoglobin 10.1 g/dL (12.0-16.0)
[2020-03-11] MEDS ORDERED: Naloxone 0.4 mg VIAL 0.4 mg/ml 1 ml VIAL IV PRN (19:11)
[2020-03-11] MEDS ORDERED: DiMENhydriNATE IV 50 mg/ml 1 ml VIAL IV PUSH PRN (19:11)
[2020-03-11] MEDS: fentaNYL 100 mcg/2 ml 50 MCG/ML VIAL IV PRN ×4 (19:17→19:30)
[2020-03-11] MEDS: Ondansetron 4 mg VIAL 2 MG/ML 2 ml VIAL IV PRN (20:29)
[2020-03-11] MEDS: Morphine 2 MG/ML SYRINGE IV PRN (20:29)
[2020-03-11] MEDS ORDERED: MEDICAL MARIJUANA PO SCH (21:00)
[2020-03-11] MEDS: Magnesium Hydroxide LIQ 30 ML UDC PO SCH (21:04)
[2020-03-11 21:36] LABS: ABS Eosinophils 0.1 10^3/ul (0-0.6); ABS Lymphocytes 0.4 10^3/ul (1.0-4.8); ABS Monocytes 0.6 10^3/ul (0-0.8); Eosinophil % 0.6 %; Hematocrit 29 % (35-47); Lymphocyte % 3.2 %; Mean Corpuscular HGB Conc 35 g/dL (31-36); Mean Corpuscular Hemoglobin 34 pg (27-31); Mean Corpuscular Volume 99 fL (80-97); Mean Platelet Volume 10.1 fL (7.4-10.4); Nucleated Red Blood Cells % 0.2; Platelet Count 217 10^3/uL (150-450); Red Blood Count 2.91 10^6 /uL (3.70-4.87); Red Cell Distribution Width 20 % (10-15)
[2020-03-11 21:39] LABS: Albumin 3.6 g/dL (3.2-5.2); Calcium 8.4 mg/dL (8.6-10.3); Magnesium 1.6 mg/dL (1.9-2.7); Potassium 4.4 mmol/L (3.5-5.0); Total Bilirubin 1.1 mg/dL (0.2-1.0)
[2020-03-11 21:44] LABS: Albumin/Globulin Ratio 1.1 (1-3); BUN/Creatinine Ratio 14.9 (8-20); EGFR African American 111.4 (>60); EGFR Non-African American 92.1 (>60); Globulin 3.3 g/dL (2-4); Total Protein 6.9 g/dL (6.4-8.9)
[2020-03-11] MEDS: Albumin Human 25% 25 GM/100 ML IV SCH (21:56)
[2020-03-11] MEDS ORDERED: HYDROmorphone 0.5 MG/0.5 ML SYRINGE IV SLOW PU ONE ×2 (22:01→23:16)
[2020-03-11] MEDS: ceFAZolin 1 GM ADVAN 1 GM in NS 0.9% 50 ML 50 ML IVPB SCH (23:37)
[2020-03-11] MEDS: Lactated Ringers 1000 ml BAG 1,000 ML IV SCH (23:37)
[2020-03-12 00:41] LABS: Hematocrit 32 % (35-47); Hemoglobin 10.8 g/dL (12.0-16.0)
[2020-03-12] MEDS ORDERED: HYDROmorphone 0.5 MG/0.5 ML SYRINGE IV SLOW PU ONE ×2 (02:27→06:23)
[2020-03-12] MEDS: Ondansetron 4 mg VIAL 2 MG/ML 2 ml VIAL IV PRN (03:29)
[2020-03-12 07:21] LABS: Hematocrit 31 % (35-47); Mean Corpuscular HGB Conc 36 g/dL (31-36); Mean Corpuscular Hemoglobin 35 pg (27-31); Mean Corpuscular Volume 96 fL (80-97); Mean Platelet Volume 10.1 fL (7.4-10.4); Platelet Count 218 10^3/uL (150-450); Red Blood Count 3.18 10^6 /uL (3.70-4.87); Red Cell Distribution Width 20 % (10-15); White Blood Count 10.8 10^3/uL (3.5-10.8)
[2020-03-12 07:25] LABS: Albumin 3.6 g/dL (3.2-5.2); Calcium 8.6 mg/dL (8.6-10.3); Potassium 4.4 mmol/L (3.5-5.0); Total Bilirubin 0.9 mg/dL (0.2-1.0)
[2020-03-12 07:30] LABS: BUN/Creatinine Ratio 15.9 (8-20); EGFR African American 88.2 (>60); EGFR Non-African American 72.9 (>60); Globulin 3.5 g/dL (2-4); Total Protein 7.1 g/dL (6.4-8.9)
[2020-03-12 08:15] LABS: ABS Basophils 0.1 10^3/ul (0-0.2)
[2020-03-12] MEDS: ceFAZolin 1 GM ADVAN 1 GM in NS 0.9% 50 ML 50 ML IVPB SCH ×2 (08:35→16:19)
[2020-03-12] MEDS: Magnesium Hydroxide LIQ 30 ML UDC PO SCH ×2 (08:35→20:55)
[2020-03-12] MEDS: Vitamin THERAPEUTIC TAB PO SCH (08:36)
[2020-03-12] MEDS: Lactated Ringers 1000 ml BAG 1,000 ML IV SCH (09:10)
[2020-03-12] MEDS ORDERED: Lactated Ringers 1000 ml BAG 1,000 ML IV SCH ×2 (10:08→11:00)
[2020-03-13] MEDS: Morphine 2 MG/ML SYRINGE IV PRN (01:49)
[2020-03-13 08:19] VITALS: BP 111/59
[2020-03-13] MEDS ORDERED: Morphine ER 15 mg TAB ** extended release PO SCH (09:00)
[2020-03-13 09:04] LABS: Hematocrit 29 % (35-47); Mean Corpuscular HGB Conc 35 g/dL (31-36); Mean Corpuscular Hemoglobin 33 pg (27-31); Mean Corpuscular Volume 96 fL (80-97); Mean Platelet Volume 9.4 fL (7.4-10.4); Platelet Count 192 10^3/uL (150-450); Red Cell Distribution Width 20 % (10-15); White Blood Count 12.7 10^3/uL (3.5-10.8)
[2020-03-13] MEDS: Magnesium Hydroxide LIQ 30 ML UDC PO SCH (09:24)
[2020-03-13] MEDS: Vitamin THERAPEUTIC TAB PO SCH (09:24)
[2020-03-13 09:48] LABS: Albumin 3.5 g/dL (3.2-5.2); Calcium 8.4 mg/dL (8.6-10.3); Potassium 4.3 mmol/L (3.5-5.0); Total Bilirubin 0.8 mg/dL (0.2-1.0)
[2020-03-13 09:54] LABS: Albumin/Globulin Ratio 1.1 (1-3); BUN/Creatinine Ratio 16.7 (8-20); EGFR African American 93.5 (>60); EGFR Non-African American 77.3 (>60); Globulin 3.2 g/dL (2-4); Total Protein 6.7 g/dL (6.4-8.9)
== END 2020-03-13 10:50 | disposition home health service (06) | DRG 302 ==
LOC: AA 13:35 → ICU 18:17 → SSU 03-12 15:08
PROVIDERS: ADMIT Orthopaedic Surgery Adult Reconstructive Orthopaedic Surgery; ATTEND Orthopaedic Surgery Adult Reconstructive Orthopaedic Surgery